=== PATIENT | male | born 1960 | race African-American/Black ===

== ENCOUNTER 2018-08-24 18:31 | Inpatient (IN) | payer OTHER ==
[~2018-08-24] VITALS: Ht 182.9 cm; Wt 114.1 kg
[2018-08-24] MEDS ORDERED: IV NORMAL SALINE 1000ML BAG 1,000 ML IV ONE ×4 (18:45→21:00)
[2018-08-24 18:58] LABS: BASO % 1 % (0-3); EOS # 0.1 x10^3/uL (0.0-0.7); EOS % 1 % (0-3); HEMOGLOBIN 13.6 g/dL (13.0-17.5); LYMPH # 0.6 x10^3/uL (1.0-4.8); LYMPH % 6 % (24-48); MEAN CORPUSCULAR HEMOGLOBIN 26 pg (25-35); MEAN CORPUSCULAR HGB CONC 32 g/dL (31-37); MEAN CORPUSCULAR VOLUME 83 fL (79-100); MONO # 0.6 x10^3/uL (0.0-1.1); MONO % 6 % (0-9); NEUT # 8.6 x10^3uL (1.8-7.7); NEUT % 87 % (31-73); PLATELET COUNT 265 x10^3/uL (140-400); RED BLOOD COUNT 5.16 x10^6/uL (4.30-5.70); RED CELL DISTRIBUTION WIDTH 16.3 % (11.5-14.5); WHITE BLOOD COUNT 9.9 x10^3/uL (4.0-11.0)
[2018-08-24] MEDS ORDERED: LABETALOL 20 MG/4 ML DISP.SYRIN. IVP ONE ×2 (19:15→21:15)
[2018-08-24 19:21] LABS: ALBUMIN 3.9 g/dL (3.4-5.0); ALBUMIN/GLOBULIN RATIO 0.7 (1.0-1.7); CALCIUM 10.4 mg/dL (8.5-10.1); CREATININE 2.4 mg/dL (0.7-1.3); GFR 34.1; MAGNESIUM 2.2 mg/dL (1.8-2.4); POTASSIUM 3.8 mmol/L (3.5-5.1); TOTAL BILIRUBIN 0.6 mg/dL (0.2-1.0); TOTAL PROTEIN 9.5 g/dL (6.4-8.2)
--- NOTE | 2018-08-24 19:32 | RAD ---
PROCEDURE: PORTABLE CHEST 1V CLINICAL INDICATION: Dizziness, HIGH BLOOD SUGAR COMPARISON: None FINDINGS: Median sternotomy. No pneumothorax identified. Cardiac and mediastinal contours unremarkable. No pulmonary consolidation or acute airspace disease. No acute osseous abnormalities identified. Multiple old healed right rib fractures. IMPRESSION: No pulmonary consolidation or acute airspace disease. Electronically signed by: Ephraim Brock DO (08/24/2018 7:30 PM) [facility]
[2018-08-24 19:54] LABS: % BANDS 2 % (0-9); % EOS 1 % (0-5); % LYMPHS 6 % (24-48); % METAS 1 % (0-0); % MONOS 3 % (0-10); % SEGS 87 % (35-66); PLT ESTIMATE ADEQUATE (ADEQUATE)
[2018-08-24 19:58] LABS: BILIRUBIN,URINE NEGATIVE (NEG); CLARITY,URINE CLEAR; COLOR,URINE YELLOW; NITRITE,URINE NEGATIVE (NEG); PROTEIN,URINE NEGATIVE (NEG-TRACE); UROBILINOGEN,URINE 0.2 mg/dL (0.2 mg/dL)
[2018-08-24] MEDS ORDERED: INSULIN REGULAR 100 UNIT/ML 3ML VIAL. IV ONE (20:00)
[2018-08-24] MEDS ORDERED: INSULIN REGULAR VIAL 150 UNIT in 0.9 % SODIUM CHLORIDE 150ML 150 ML IV PRN (20:00)
[2018-08-24] MEDS ORDERED: POTASSIUM CHLORIDE 10MEQ 100 ML IV PRN ×3 (20:00)
[2018-08-24 20:05] LABS: BARBITURATES NEG (NEG); BENZODIAZEPINES NEG (NEG); CANNABINOIDS NEG (NEG); COCAINE NEG (NEG); METHADONE NEG (NEG); OPIATES NEG (NEG); PHENCYCLIDINE NEG (NEG)
[2018-08-24 20:06] LABS: BACTERIA,URINE 0 /HPF (0-FEW); RBC,URINE RARE /HPF (0-2); WBC,URINE 0 /HPF (0-4)
[2018-08-24 20:07] LABS: AMPHETAMINE/METHAMPHETAMINE NEG (NEG)
[2018-08-24] MEDS ORDERED: INSULIN,REGULAR 150 UNIT DRIP 150 ML IV ONE (20:15)
--- NOTE | 2018-08-24 20:24 | PHYS DOC ---
Past Medical History Past Medical History: Depression, GERD, High Cholesterol, Hypertension Additional Past Medical Histor: schizoeffective Past Surgical History: Coronary Bypass Surgery Alcohol Use: None Drug Use: None Adult General Chief Complaint Chief Complaint: HYPERGLYCEMIA HPI HPI Patient is a 58 year old male with history of hypertension, diabetes, depression, open heart surgery 10 years ago, who presents to the ED today complaining of hyperglycemia. Patient states he took his blood glucose at 1600 this evening and it was high. Patient states his blood glucose usually runs in the low 100s. Patient is complaining of dizziness with blurry vision since last week. Denies any chest pain or shortness of breath. He states he took Damien-Aid prior to coming to the ED. PCP Dr. Dawkins Review of Systems Review of Systems Constitutional: Denies fever or chills [] Eyes: Denies change in visual acuity, redness, or eye pain [] HENT: Denies nasal congestion or sore throat [] Respiratory: Denies cough or shortness of breath [] Cardiovascular: No additional information not addressed in HPI [] GI: Denies abdominal pain, nausea, vomiting, bloody stools or diarrhea [] : Denies dysuria or hematuria [] Musculoskeletal: Denies back pain or joint pain [] Integument: Denies rash or skin lesions [] Neurologic: Denies headache, focal weakness or sensory changes [] Endocrine: Reports hyperglycemia All other systems were reviewed and found to be within normal limits, except as documented in this note. Current Medications Current Medications Current Medications Medications (Trade) Dose Ordered Sig/Mathew Start Time Stop Time Status Last Admin Dose Admin Insulin Human Regular 150 ml @ 10.88 mls/ hr 1X ONCE 08/24/18 20:15 08/25/18 10:01 08/24/18 20:26 10.88 MLS/HR Insulin Human Regular (HumuLIN R VIAL) 20 unit 1X ONCE 08/24/18 20:00 08/24/18 20:01 DC 08/24/18 19:59 20 UNIT Insulin Human Regular 150 unit/ Sodium Chloride 151.5 ml @ 0 mls/hr CONT PRN PRN 08/24/18 20:00 Labetalol HCl (Normodyne Iv Push) 10 mg PRN Q4HRS PRN 08/24/18 21:15 Morphine Sulfate (Morphine Sulfate) 2 mg PRN Q2HR PRN 08/24/18 20:45 08/25/18 20:44 Ondansetron HCl (Zofran) 4 mg PRN Q8HRS PRN 08/24/18 20:45 08/25/18 20:44 Potassium Chloride/Water 100 ml @ 100 mls/hr PRN Q1HR PRN 08/24/18 20:00 Sodium Chloride 1,000 ml @ 125 mls/hr 1X ONCE 08/24/18 21:00 08/25/18 04:59 Allergies Allergies Allergies Coded Allergies Type Severity Reaction Last Updated Verified No Known Drug Allergies 08/24/18 No Physical Exam Physical Exam Constitutional: Well developed, well nourished, no acute distress, non-toxic appearance. [] HENT: Normocephalic, atraumatic, bilateral external ears normal, oropharynx moist, no oral exudates, nose normal. [] Eyes: PERRLA, EOMI, conjunctiva normal, no discharge. [] Neck: Normal range of motion, no tenderness, supple, no stridor. [] Cardiovascular: Old healed surgical incision midline chest. Heart rate regular rhythm, no murmur [] Lungs & Thorax: Bilateral breath sounds clear to auscultation [] Abdomen: Bowel sounds normal, soft, no tenderness, no masses, no pulsatile masses. [] Skin: Warm, dry, no erythema, no rash. [] Back: No tenderness, no CVA tenderness. [] Extremities: No tenderness, no cyanosis, no clubbing, ROM intact, no edema. [] Neurologic: Alert and oriented X 3, normal motor function, normal sensory function, no focal deficits noted. [] Psychologic: Affect normal, judgement normal, mood normal. [] Current Patient Data Vital Signs Vital Signs Date Time Temp Pulse Resp B/P (MAP) Pulse Ox O2 Delivery O2 Flow Rate FiO2 08/24/18 20:07 88 17 215/139 (164) 97 Room Air 08/24/18 18:40 98.9 98.9 Lab Values Laboratory Tests Test 08/24/18 18:35 08/24/18 18:38 08/24/18 19:50 Sodium Level 121 mmol/L (136-145) L Potassium Level 3.8 mmol/L (3.5-5.1) Chloride Level 82 mmol/L (98-107) L Carbon Dioxide Level 25 mmol/L (21-32) Anion Gap 14 (6-14) Blood Urea Nitrogen 16 mg/dL (8-26) Creatinine 2.4 mg/dL (0.7-1.3) H Estimated GFR (Cockcroft-Gault) 34.1 BUN/Creatinine Ratio 7 (6-20) Glucose Level 1205 mg/dL (70-99) *H Calcium Level 10.4 mg/dL (8.5-10.1) H Magnesium Level 2.2 mg/dL (1.8-2.4) Total Bilirubin 0.6 mg/dL (0.2-1.0) Aspartate Amino Transferase (AST) 11 U/L (15-37) L Alanine Aminotransferase (ALT) 22 U/L (16-63) Alkaline Phosphatase 192 U/L (46-116) H Creatine Kinase 108 U/L (39-308) Creatine Kinase MB (Mass) 1.4 ng/mL (0.0-3.6) Creatine Kinase MB Relative Index 1.3 % (0-4) Troponin I Quantitative < 0.017 ng/mL (0.000-0.055) IR-Rbk-V-Type Natriuretic Peptide 1732 pg/mL (0-124) H Total Protein 9.5 g/dL (6.4-8.2) H Albumin 3.9 g/dL (3.4-5.0) Albumin/Globulin Ratio 0.7 (1.0-1.7) L Lipase 401 U/L (73-393) H White Blood Count 9.9 x10^3/uL (4.0-11.0) Red Blood Count 5.16 x10^6/uL (4.30-5.70) Hemoglobin 13.6 g/dL (13.0-17.5) Hematocrit 43.0 % (39.0-53.0) Mean Corpuscular Volume 83 fL (79-100) Mean Corpuscular Hemoglobin 26 pg (25-35) Mean Corpuscular Hemoglobin Concent 32 g/dL (31-37) Red Cell Distribution Width 16.3 % (11.5-14.5) H Platelet Count 265 x10^3/uL (140-400) Neutrophils (%) (Auto) 87 % (31-73) H Lymphocytes (%) (Auto) 6 % (24-48) L Monocytes (%) (Auto) 6 % (0-9) Eosinophils (%) (Auto) 1 % (0-3) Basophils (%) (Auto) 1 % (0-3) Neutrophils # (Auto) 8.6 x10^3uL (1.8-7.7) H Lymphocytes # (Auto) 0.6 x10^3/uL (1.0-4.8) L Monocytes # (Auto) 0.6 x10^3/uL (0.0-1.1) Eosinophils # (Auto) 0.1 x10^3/uL (0.0-0.7) Basophils # (Auto) 0.0 x10^3/uL (0.0-0.2) Segmented Neutrophils % 87 % (35-66) H Band Neutrophils % 2 % (0-9) Lymphocytes % 6 % (24-48) L Monocytes % 3 % (0-10) Eosinophils % 1 % (0-5) Metamyelocytes % 1 % (0-0) H Platelet Estimate Adequate (ADEQUATE) Urine Collection Type Unknown Urine Color Yellow Urine Clarity Clear Urine pH 6.0 Urine Specific Jackson >=1.030 Urine Protein Negative mg/dL (NEG-TRACE) Urine Glucose (UA) >=1000 mg/dL (NEG) Urine Ketones (Stick) Negative mg/dL (NEG) Urine Blood Negative (NEG) Urine Nitrite Negative (NEG) Urine Bilirubin Negative (NEG) Urine Urobilinogen Dipstick 0.2 mg/dL (0.2 mg/dL) Urine Leukocyte Esterase Negative (NEG) Urine RBC Rare /HPF (0-2) Urine WBC 0 /HPF (0-4) Urine Bacteria 0 /HPF (0-FEW) Urine Opiates Screen Neg (NEG) Urine Methadone Screen Neg (NEG) Urine Barbiturates Neg (NEG) Urine Phencyclidine Screen Neg (NEG) Urine Amphetamine/Methamphetamine Neg (NEG) Urine Benzodiazepines Screen Neg (NEG) Urine Cocaine Screen Neg (NEG) Urine Cannabinoids Screen Neg (NEG) Urine Ethyl Alcohol Neg (NEG) Laboratory Tests 08/24/18 18:38 Laboratory Tests 08/24/18 18:35 EKG EKG [] Radiology/Procedures Radiology/Procedures []PROCEDURE: PORTABLE CHEST 1V PROCEDURE: PORTABLE CHEST 1V CLINICAL INDICATION: Dizziness, HIGH BLOOD SUGAR COMPARISON: None FINDINGS: Median sternotomy. No pneumothorax identified. Cardiac and mediastinal contours unremarkable. No pulmonary consolidation or acute airspace disease. No acute osseous abnormalities identified. Multiple old healed right rib fractures. IMPRESSION: No pulmonary consolidation or acute airspace disease. Electronically signed by: Ephraim Brock DO (08/24/2018 7:30 PM) [facility] DICTATED and SIGNED BY: EPHRAIM BROCK DO DATE: 08/24/181928 Course & Med Decision Making Course & Med Decision Making Pertinent Labs and Imaging studies reviewed. (See chart for details) This is a 58-year-old male patient with history of diabetes type 2 presenting to the ED today complaining of hyperglycemia. Blood glucose was high at home. CBC with no acute findings, CMP with glucose of 1205, normal anion gap, sodium 121, creatinine 2.1, BUN 16. Magnesium 2.2. Urine negative for ketones. Patient was given 3 L of IV fluids in the ED, given 20 units of regular insulin , started on insulin drip. Lipase was 401, patient denies any history of alcohol abuse, denies abdominal pain, CT abdomen was ordered. CT of the abdomen and pelvic is negative for any acute findings, GI consult was placed for am. Patient blood pressure was also running high, on arrival to the ED he was around 220s/120s. Patient was given labetalol Spoke with who accepted patient for admission Dragon Disclaimer Dragon Disclaimer This electronic medical record was generated, in whole or in part, using a voice recognition dictation system. Departure Departure Impression: Primary Impression: Type 2 diabetes mellitus with hyperosmolar nonketotic hyperglycemia Additional Impressions: Acute renal failure Hyponatremia Pancreatitis, acute Hypertension Disposition: ADMITTED INPATIENT Condition: STABLE Referrals: Miguelina DAWKINS MD (PCP) Problem Qualifiers Additional Impressions: Acute renal failure Acute renal failure type: unspecified Qualified Codes: N17.9 - Acute kidney failure, unspecified Pancreatitis, acute Pancreatitis type: unspecified pancreatitis type Acute pancreatitis complication: unspecified Qualified Codes: K85.90 - Acute pancreatitis without necrosis or infection, unspecified Hypertension Hypertension type: unspecified Qualified Codes: I10 - Essential (primary) hypertension TRACEY ROMERO APRN Aug 24, 2018 20:24
[2018-08-24] MEDS ORDERED: MORPHINE SULFATE 4 MG/ML VIAL. IV PRN (20:45)
[2018-08-24] MEDS ORDERED: ONDANSETRON PF 4 MG/2 ML VIAL. IV PRN (20:45)
--- NOTE | 2018-08-24 21:02 | RAD ---
PQRS Compliance statement: One or more of the following individualized dose reduction techniques were utilized for this examination: 1. Automated exposure control. 2. Adjustment of the mA and/or kV according to patient size. 3. Use of iterative reconstruction technique. Indication:abd pain, acute pancreatitis, no contrast per order, no priors TECHNIQUE: CT abdomen and pelvis without IV contrast with multiplanar reformats. COMPARISON: None FINDINGS: Limited evaluation of solid abdominal and pelvic organs due to lack of IV contrast. Heart is normal in size. No pericardial or pleural effusion. Subsegmental atelectasis in the lung bases. Nodular contour of the liver surface. Noncontrast appearance of the spleen, pancreas, adrenals and left kidney within normal limits. No nephrolithiasis or hydronephrosis. 2.9 x 5 cm high attenuating lesion is seen in the inferior pole of the right kidney. No radiopaque gallstones. No pancreatic or peripancreatic inflammatory changes. No enlarged retroperitoneal or pelvic adenopathy. Mildly enlarged carleen hepatis lymph nodes are seen, the largest measuring 2.3 x 1.3 cm, nonspecific but most likely reactive. No bowel obstruction. Normal appendix. The prostate and seminal vesicles show no large mass. Urinary bladder within normal limits. No pneumoperitoneum. No suspicious bony lesion. Mild loss of superior endplate of T10 and T11 vertebral bodies. IMPRESSION: 1. No pancreatic or peripancreatic inflammatory changes or pseudocyst. 2. Right lower pole renal lesion likely minimally complicated cyst. Nonemergent ultrasound of the right kidney recommended. 3. Carleen hepatis lymph nodes, nonspecific likely reactive. 4. Very mild loss of anterior heights at T10 and T11 vertebral bodies likely compression deformities, age indeterminate. 5. Nodular contour of the liver. This could be secondary to early changes of cirrhosis. Electronically signed by: Ephraim Brock DO (08/24/2018 8:58 PM) [facility]
[2018-08-24] MEDS ORDERED: LABETALOL 20 MG/4 ML DISP.SYRIN. IVP PRN (21:15)
--- NOTE | 2018-08-24 22:57 | EKG ---
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
[2018-08-24 23:15] VITALS: BP 163/93
[2018-08-24] MEDS ORDERED: DEXTROSE 50% 25 GM / 50ML DISP.SYRIN. IV PRN (23:45)
[2018-08-24] MEDS ORDERED: POTASSIUM CHLORIDE 20 MEQ TABLET.ER. PO ONE (23:45)
[2018-08-24] MEDS ORDERED: IV NORMAL SALINE 1000ML BAG 1,000 ML IV SCH (23:45)
[2018-08-25] VITALS (17 sets, daily range): BP systolic 87–167; BP diastolic 46–101
[2018-08-25] MEDS ORDERED: PANT20TA2 PO (01:19)
[2018-08-25] MEDS ORDERED: TRAM50TA PO (01:21)
[2018-08-25] MEDS ORDERED: MIRT30TA3 PO (01:22)
[2018-08-25] MEDS ORDERED: CARV25TA2 PO (01:23)
[2018-08-25] MEDS ORDERED: AMLO5TAB4 PO (01:25)
[2018-08-25] MEDS ORDERED: HYDR12.58 PO (01:26)
[2018-08-25] MEDS ORDERED: SERT100T PO (01:27)
[2018-08-25] MEDS ORDERED: LIPITOR80 MG PO (01:28)
[2018-08-25] MEDS ORDERED: LOSA100T2 PO (01:29)
[2018-08-25] MEDS ORDERED: GABA-585 PO (01:30)
[2018-08-25] MEDS ORDERED: QUET400T4 PO (01:31)
[2018-08-25] MEDS ORDERED: NPH,100V SQ (01:33)
[2018-08-25] MEDS ORDERED: INSU100V5 IJ ×2 (01:35→01:36)
[2018-08-25] MEDS ORDERED: FLUT9.9S NS (01:36)
[2018-08-25] MEDS ORDERED: ACETAMINOPHEN 500 MG TABLET PO PRN (02:45)
[2018-08-25 04:55] LABS: BASO # 0.1 x10^3/uL (0.0-0.2); BASO % 0 % (0-3); EOS # 0.3 x10^3/uL (0.0-0.7); EOS % 3 % (0-3); LYMPH # 1.4 x10^3/uL (1.0-4.8); LYMPH % 11 % (24-48); MEAN CORPUSCULAR HEMOGLOBIN 26 pg (25-35); MEAN CORPUSCULAR HGB CONC 33 g/dL (31-37); MEAN CORPUSCULAR VOLUME 80 fL (79-100); MONO # 0.8 x10^3/uL (0.0-1.1); MONO % 7 % (0-9); NEUT # 9.8 x10^3uL (1.8-7.7); NEUT % 79 % (31-73); PLATELET COUNT 241 x10^3/uL (140-400); RED BLOOD COUNT 5.03 x10^6/uL (4.30-5.70); RED CELL DISTRIBUTION WIDTH 15.8 % (11.5-14.5); WHITE BLOOD COUNT 12.4 x10^3/uL (4.0-11.0)
[2018-08-25 06:19] LABS: CALCIUM 9.5 mg/dL (8.5-10.1); CREATININE 1.7 mg/dL (0.7-1.3); GFR 50.7; POTASSIUM 3.9 mmol/L (3.5-5.1)
[2018-08-25 06:20] LABS: PHOSPHORUS 4.1 mg/dL (2.6-4.7)
[2018-08-25] MEDS: INSULIN LISPRO 300 UNITS/3 ML INSULN.PEN. SQ SCH ×3 (08:11→17:10)
[2018-08-25] MEDS ORDERED: traMADol 50 MG TABLET PO PRN (08:30)
--- NOTE | 2018-08-25 08:36 | PDOC ---
PROGRESS NOTES Subjective Subjective Patient without complaint. Reports FSBG has been running high for months, did not take extra insulin. Denies abdominal pain at present. Objective Objective Vital Signs Date Time Temp Pulse Resp B/P (MAP) Pulse Ox O2 Delivery O2 Flow Rate FiO2 08/25/18 07:58 89 16 148/97 (114) 96 Room Air 08/25/18 04:00 98.6 98.6 Intake and Output 08/25/18 07:00 Intake Total 4014 ml Output Total 250 ml Balance 3764 ml Intake Oral 360 ml IV Total 3654 ml Output Urine Total 250 ml Physical Exam Abdomen: Normal bowel sounds, Soft, No tenderness Heart: Regular rate Extremities: No edema General: Alert, Oriented X3, No acute distress Lungs: Other (BS mildly decreased throughout but CTA) Neuro: Other (tardive dyskinesia of mouth) Assessment Assessment Problems Medical Problems: (1) Acute renal failure Status: Acute (2) Hypertension Status: Acute (3) Hyponatremia Status: Acute (4) Pancreatitis, acute Status: Acute (5) Type 2 diabetes mellitus with hyperosmolar nonketotic hyperglycemia Status: Acute Plan Plan of Care 1. Uncontrolled DM2 - glucose over 1000 at admission, improved quickly with insulin gtt. Last A1C in office was 11.8. Will increase insulins and adjust as indicated. Patient had been well controlled on NPH and regular in the past, will try to continue him on these insulins if possible. 2. HTN - has been controlled, continue home medications. 3. schizoaffective disorder - has been stable, continue home medications. 4. hyponatremia and acute renal failure - improved overnight with IVF. Creatinine close to baseline now. Hold HCTZ and follow lab. 5. elevated lipase - level just over normal range on admission, CT abdomen without acute abnormalities. Patient reports history of heavy ETOH use but does not drink anymore. Abdominal exam benign. Recheck lab in AM. Comment Review of Relevant I have reviewed the following items jose (where applicable) has been applied. Labs Laboratory Tests Test 08/24/18 18:35 08/24/18 18:38 08/24/18 19:50 08/24/18 21:22 Sodium Level 121 mmol/L (136-145) Potassium Level 3.8 mmol/L (3.5-5.1) Chloride Level 82 mmol/L (98-107) Carbon Dioxide Level 25 mmol/L (21-32) Anion Gap 14 (6-14) Blood Urea Nitrogen 16 mg/dL (8-26) Creatinine 2.4 mg/dL (0.7-1.3) Estimated GFR (Cockcroft-Gault) 34.1 BUN/Creatinine Ratio 7 (6-20) Glucose Level 1205 mg/dL (70-99) Calcium Level 10.4 mg/dL (8.5-10.1) Magnesium Level 2.2 mg/dL (1.8-2.4) Total Bilirubin 0.6 mg/dL (0.2-1.0) Aspartate Amino Transf (AST/SGOT) 11 U/L (15-37) Alanine Aminotransferase (ALT/SGPT) 22 U/L (16-63) Alkaline Phosphatase 192 U/L (46-116) Creatine Kinase 108 U/L (39-308) Creatine Kinase MB (Mass) 1.4 ng/mL (0.0-3.6) Creatine Kinase MB Relative Index 1.3 % (0-4) Troponin I Quantitative < 0.017 ng/mL (0.000-0.055) GC-Cgd-G-Type Natriuretic Peptide 1732 pg/mL (0-124) Total Protein 9.5 g/dL (6.4-8.2) Albumin 3.9 g/dL (3.4-5.0) Albumin/Globulin Ratio 0.7 (1.0-1.7) Lipase 401 U/L (73-393) White Blood Count 9.9 x10^3/uL (4.0-11.0) Red Blood Count 5.16 x10^6/uL (4.30-5.70) Hemoglobin 13.6 g/dL (13.0-17.5) Hematocrit 43.0 % (39.0-53.0) Mean Corpuscular Volume 83 fL (79-100) Mean Corpuscular Hemoglobin 26 pg (25-35) Mean Corpuscular Hemoglobin Concent 32 g/dL (31-37) Red Cell Distribution Width 16.3 % (11.5-14.5) Platelet Count 265 x10^3/uL (140-400) Neutrophils (%) (Auto) 87 % (31-73) Lymphocytes (%) (Auto) 6 % (24-48) Monocytes (%) (Auto) 6 % (0-9) Eosinophils (%) (Auto) 1 % (0-3) Basophils (%) (Auto) 1 % (0-3) Neutrophils # (Auto) 8.6 x10^3uL (1.8-7.7) Lymphocytes # (Auto) 0.6 x10^3/uL (1.0-4.8) Monocytes # (Auto) 0.6 x10^3/uL (0.0-1.1) Eosinophils # (Auto) 0.1 x10^3/uL (0.0-0.7) Basophils # (Auto) 0.0 x10^3/uL (0.0-0.2) Segmented Neutrophils % 87 % (35-66) Band Neutrophils % 2 % (0-9) Lymphocytes % 6 % (24-48) Monocytes % 3 % (0-10) Eosinophils % 1 % (0-5) Metamyelocytes % 1 % (0-0) Platelet Estimate Adequate (ADEQUATE) Urine Collection Type Unknown Urine Color Yellow Urine Clarity Clear Urine pH 6.0 Urine Specific [place] >=1.030 Urine Protein Negative mg/dL (NEG-TRACE) Urine Glucose (UA) >=1000 mg/dL (NEG) Urine Ketones (Stick) Negative mg/dL (NEG) Urine Blood Negative (NEG) Urine Nitrite Negative (NEG) Urine Bilirubin Negative (NEG) Urine Urobilinogen Dipstick 0.2 mg/dL (0.2 mg/dL) Urine Leukocyte Esterase Negative (NEG) Urine RBC Rare /HPF (0-2) Urine WBC 0 /HPF (0-4) Urine Bacteria 0 /HPF (0-FEW) Urine Opiates Screen Neg (NEG) Urine Methadone Screen Neg (NEG) Urine Barbiturates Neg (NEG) Urine Phencyclidine Screen Neg (NEG) Urine Amphetamine/Methamphetamine Neg (NEG) Urine Benzodiazepines Screen Neg (NEG) Urine Cocaine Screen Neg (NEG) Urine Cannabinoids Screen Neg (NEG) Urine Ethyl Alcohol Neg (NEG) Glucose (Fingerstick) 371 mg/dL (70-99) Test 08/24/18 22:29 08/24/18 23:14 08/25/18 03:44 08/25/18 04:45 Glucose (Fingerstick) 157 mg/dL (70-99) 105 mg/dL (70-99) 216 mg/dL (70-99) White Blood Count 12.4 x10^3/uL (4.0-11.0) Red Blood Count 5.03 x10^6/uL (4.30-5.70) Hemoglobin 13.0 g/dL (13.0-17.5) Hematocrit 40.0 % (39.0-53.0) Mean Corpuscular Volume 80 fL (79-100) Mean Corpuscular Hemoglobin 26 pg (25-35) Mean Corpuscular Hemoglobin Concent 33 g/dL (31-37) Red Cell Distribution Width 15.8 % (11.5-14.5) Platelet Count 241 x10^3/uL (140-400) Neutrophils (%) (Auto) 79 % (31-73) Lymphocytes (%) (Auto) 11 % (24-48) Monocytes (%) (Auto) 7 % (0-9) Eosinophils (%) (Auto) 3 % (0-3) Basophils (%) (Auto) 0 % (0-3) Neutrophils # (Auto) 9.8 x10^3uL (1.8-7.7) Lymphocytes # (Auto) 1.4 x10^3/uL (1.0-4.8) Monocytes # (Auto) 0.8 x10^3/uL (0.0-1.1) Eosinophils # (Auto) 0.3 x10^3/uL (0.0-0.7) Basophils # (Auto) 0.1 x10^3/uL (0.0-0.2) Sodium Level 137 mmol/L (136-145) Potassium Level 3.9 mmol/L (3.5-5.1) Chloride Level 100 mmol/L (98-107) Carbon Dioxide Level 26 mmol/L (21-32) Anion Gap 11 (6-14) Blood Urea Nitrogen 12 mg/dL (8-26) Creatinine 1.7 mg/dL (0.7-1.3) Estimated GFR (Cockcroft-Gault) 50.7 Glucose Level 247 mg/dL (70-99) Calcium Level 9.5 mg/dL (8.5-10.1) Phosphorus Level 4.1 mg/dL (2.6-4.7) Test 08/25/18 08:07 Glucose (Fingerstick) 309 mg/dL (70-99) Laboratory Tests Test 08/24/18 18:35 08/24/18 18:38 08/24/18 19:50 08/24/18 21:22 Sodium Level 121 mmol/L (136-145) Potassium Level 3.8 mmol/L (3.5-5.1) Chloride Level 82 mmol/L (98-107) Carbon Dioxide Level 25 mmol/L (21-32) Anion Gap 14 (6-14) Blood Urea Nitrogen 16 mg/dL (8-26) Creatinine 2.4 mg/dL (0.7-1.3) Estimated GFR (Cockcroft-Gault) 34.1 BUN/Creatinine Ratio 7 (6-20) Glucose Level 1205 mg/dL (70-99) Calcium Level 10.4 mg/dL (8.5-10.1) Magnesium Level 2.2 mg/dL (1.8-2.4) Total Bilirubin 0.6 mg/dL (0.2-1.0) Aspartate Amino Transf (AST/SGOT) 11 U/L (15-37) Alanine Aminotransferase (ALT/SGPT) 22 U/L (16-63) Alkaline Phosphatase 192 U/L (46-116) Creatine Kinase 108 U/L (39-308) Creatine Kinase MB (Mass) 1.4 ng/mL (0.0-3.6) Creatine Kinase MB Relative Index 1.3 % (0-4) Troponin I Quantitative < 0.017 ng/mL (0.000-0.055) EA-Ypf-T-Type Natriuretic Peptide 1732 pg/mL (0-124) Total Protein 9.5 g/dL (6.4-8.2) Albumin 3.9 g/dL (3.4-5.0) Albumin/Globulin Ratio 0.7 (1.0-1.7) Lipase 401 U/L (73-393) White Blood Count 9.9 x10^3/uL (4.0-11.0) Red Blood Count 5.16 x10^6/uL (4.30-5.70) Hemoglobin 13.6 g/dL (13.0-17.5) Hematocrit 43.0 % (39.0-53.0) Mean Corpuscular Volume 83 fL (79-100) Mean Corpuscular Hemoglobin 26 pg (25-35) Mean Corpuscular Hemoglobin Concent 32 g/dL (31-37) Red Cell Distribution Width 16.3 % (11.5-14.5) Platelet Count 265 x10^3/uL (140-400) Neutrophils (%) (Auto) 87 % (31-73) Lymphocytes (%) (Auto) 6 % (24-48) Monocytes (%) (Auto) 6 % (0-9) Eosinophils (%) (Auto) 1 % (0-3) Basophils (%) (Auto) 1 % (0-3) Neutrophils # (Auto) 8.6 x10^3uL (1.8-7.7) Lymphocytes # (Auto) 0.6 x10^3/uL (1.0-4.8) Monocytes # (Auto) 0.6 x10^3/uL (0.0-1.1) Eosinophils # (Auto) 0.1 x10^3/uL (0.0-0.7) Basophils # (Auto) 0.0 x10^3/uL (0.0-0.2) Segmented Neutrophils % 87 % (35-66) Band Neutrophils % 2 % (0-9) Lymphocytes % 6 % (24-48) Monocytes % 3 % (0-10) Eosinophils % 1 % (0-5) Metamyelocytes % 1 % (0-0) Platelet Estimate Adequate (ADEQUATE) Urine Collection Type Unknown Urine Color Yellow Urine Clarity Clear Urine pH 6.0 Urine Specific [place] >=1.030 Urine Protein Negative mg/dL (NEG-TRACE) Urine Glucose (UA) >=1000 mg/dL (NEG) Urine Ketones (Stick) Negative mg/dL (NEG) Urine Blood Negative (NEG) Urine Nitrite Negative (NEG) Urine Bilirubin Negative (NEG) Urine Urobilinogen Dipstick 0.2 mg/dL (0.2 mg/dL) Urine Leukocyte Esterase Negative (NEG) Urine RBC Rare /HPF (0-2) Urine WBC 0 /HPF (0-4) Urine Bacteria 0 /HPF (0-FEW) Urine Opiates Screen Neg (NEG) Urine Methadone Screen Neg (NEG) Urine Barbiturates Neg (NEG) Urine Phencyclidine Screen Neg (NEG) Urine Amphetamine/Methamphetamine Neg (NEG) Urine Benzodiazepines Screen Neg (NEG) Urine Cocaine Screen Neg (NEG) Urine Cannabinoids Screen Neg (NEG) Urine Ethyl Alcohol Neg (NEG) Glucose (Fingerstick) 371 mg/dL (70-99) Test 08/24/18 22:29 08/24/18 23:14 08/25/18 03:44 08/25/18 04:45 Glucose (Fingerstick) 157 mg/dL (70-99) 105 mg/dL (70-99) 216 mg/dL (70-99) White Blood Count 12.4 x10^3/uL (4.0-11.0) Red Blood Count 5.03 x10^6/uL (4.30-5.70) Hemoglobin 13.0 g/dL (13.0-17.5) Hematocrit 40.0 % (39.0-53.0) Mean Corpuscular Volume 80 fL (79-100) Mean Corpuscular Hemoglobin 26 pg (25-35) Mean Corpuscular Hemoglobin Concent 33 g/dL (31-37) Red Cell Distribution Width 15.8 % (11.5-14.5) Platelet Count 241 x10^3/uL (140-400) Neutrophils (%) (Auto) 79 % (31-73) Lymphocytes (%) (Auto) 11 % (24-48) Monocytes (%) (Auto) 7 % (0-9) Eosinophils (%) (Auto) 3 % (0-3) Basophils (%) (Auto) 0 % (0-3) Neutrophils # (Auto) 9.8 x10^3uL (1.8-7.7) Lymphocytes # (Auto) 1.4 x10^3/uL (1.0-4.8) Monocytes # (Auto) 0.8 x10^3/uL (0.0-1.1) Eosinophils # (Auto) 0.3 x10^3/uL (0.0-0.7) Basophils # (Auto) 0.1 x10^3/uL (0.0-0.2) Sodium Level 137 mmol/L (136-145) Potassium Level 3.9 mmol/L (3.5-5.1) Chloride Level 100 mmol/L (98-107) Carbon Dioxide Level 26 mmol/L (21-32) Anion Gap 11 (6-14) Blood Urea Nitrogen 12 mg/dL (8-26) Creatinine 1.7 mg/dL (0.7-1.3) Estimated GFR (Cockcroft-Gault) 50.7 Glucose Level 247 mg/dL (70-99) Calcium Level 9.5 mg/dL (8.5-10.1) Phosphorus Level 4.1 mg/dL (2.6-4.7) Test 08/25/18 08:07 Glucose (Fingerstick) 309 mg/dL (70-99) Medications Current Medications Sodium Chloride 1,000 ml @ 1,000 mls/hr 1X ONCE IV Last administered on at 18:45; Start 08/24/18 at 18:45; Stop 08/24/18 at 19:44; Status DC Sodium Chloride 1,000 ml @ 1,000 mls/hr 1X ONCE IV Last administered on at 18:45; Start 08/24/18 at 18:45; Stop 08/24/18 at 19:44; Status DC Labetalol HCl (Normodyne Iv Push) 10 mg 1X ONCE IVP Last administered on at 19:48; Start 08/24/18 at 19:15; Stop 08/24/18 at 19:16; Status DC Insulin Human Regular (HumuLIN R VIAL) 20 unit 1X ONCE IV Last administered on 08/24/18at 19:59; Start 08/24/18 at 20:00; Stop 08/24/18 at 20:01; Status DC Insulin Human Regular 150 unit/ Sodium Chloride 151.5 ml @ 0 mls/hr CONT PRN PRN IV PER PROTOCOL; Start 08/24/18 at 20:00; Stop 08/25/18 at 08:23; Status DC Potassium Chloride/Water 100 ml @ 100 mls/hr PRN Q1HR PRN IV SEE COMMENTS; Start 08/24/18 at 20:00; Stop 08/25/18 at 08:23; Status DC Potassium Chloride/Water 100 ml @ 100 mls/hr PRN Q1HR PRN IV SEE COMMENTS; Start 08/24/18 at 20:00; Stop 08/25/18 at 08:23; Status DC Potassium Chloride/Water 100 ml @ 100 mls/hr PRN Q1HR PRN IV SEE COMMENTS; Start 08/24/18 at 20:00; Stop 08/25/18 at 08:23; Status DC Sodium Chloride 1,000 ml @ 1,000 mls/hr 1X ONCE IV Last administered on at 21:03; Start 08/24/18 at 20:00; Stop 08/24/18 at 20:59; Status DC Insulin Human Regular 150 ml @ 10.88 mls/ hr 1X ONCE IV Last administered on 08/24/18at 20:26; Start 08/24/18 at 20:15; Stop 08/25/18 at 10:01 Ondansetron HCl (Zofran) 4 mg PRN Q8HRS PRN IV NAUSEA/VOMITING; Start 08/24/18 at 20:45; Stop 08/25/18 at 20:44 Morphine Sulfate (Morphine Sulfate) 2 mg PRN Q2HR PRN IV PAIN Last administered on 08/24/18at 22:26; Start 08/24/18 at 20:45; Stop 08/25/18 at 20:44 Sodium Chloride 1,000 ml @ 125 mls/hr 1X ONCE IV Last administered on at 22:19; Start 08/24/18 at 21:00; Stop 08/25/18 at 04:59; Status DC Labetalol HCl (Normodyne Iv Push) 10 mg 1X ONCE IVP Last administered on at 21:23; Start 08/24/18 at 21:15; Stop 08/24/18 at 21:16; Status DC Labetalol HCl (Normodyne Iv Push) 10 mg PRN Q4HRS PRN IVP ELEVATED BP, SEE COMMENTS; Start 08/24/18 at 21:15 Potassium Chloride (Klor-Con) 20 meq 1X ONCE PO Last administered on at 00:06; Start 08/24/18 at 23:45; Stop 08/24/18 at 23:46; Status DC Insulin Human Lispro (HumaLOG) 0-5 UNITS TIDWMEALS SQ Last administered on 08/25at 08:11; Start 08/25/18 at 08:00 Dextrose (Dextrose 50%-Water Syringe) 12.5 gm PRN Q15MIN PRN IV SEE COMMENTS; Start 08/24/18 at 23:45 Sodium Chloride 1,000 ml @ 100 mls/hr Q10H IV Last administered on 08/25/18at 00:06; Start 08/24/18 at 23:45 Acetaminophen (Tylenol) 1,000 mg PRN Q6HRS PRN PO PAIN Last administered on at 02:52; Start 08/25/18 at 02:45 Amlodipine Besylate (Norvasc) 5 mg DAILY PO ; Start 08/25/18 at 09:00; Status UNV Gabapentin (Neurontin) 100 mg TID PO ; Start 08/25/18 at 09:00; Status UNV Tramadol HCl (Ultram) 50 mg BID PRN PO PAIN; Start 08/25/18 at 08:30; Status UNV Non-Formulary Medication (Atorvastatin Calcium (Lipitor)) 1 tab DAILY PO ; Start 08/25/18 at 09:00; Status UNV Non-Formulary Medication (Carvedilol ) 25 mg BIDWMEALS PO ; Start 08/25/18 at 17 :00; Status UNV Non-Formulary Medication (Fluticasone Propionate (Flonase Allergy Relief)) 1 sprays DAILY NS ; Start 08/25/18 at 09:00; Status UNV Non-Formulary Medication (Losartan Potassium (Cozaar)) 100 mg DAILY PO ; Start 08/25/18 at 09:00; Status UNV Non-Formulary Medication (Mirtazapine ) 1 tab QHS PO ; Start 08/25/18 at 21:00; Status UNV Active Scripts Active Reported Flonase Allergy Relief (Fluticasone Propionate) 9.9 Ml [place].susp 1 Sprays NS DAILY Humulin R (Insulin Regular, Human) 100 Unit/1 Ml Vial 4 Unit IJ DAILY16 Humulin R (Insulin Regular, Human) 100 Unit/1 Ml Vial 8 Unit IJ DAILY08 Humulin N (Nph, Human Insulin Isophane) 100 Unit/1 Ml Vial 10 Unit SQ [id number] Seroquel (Quetiapine Fumarate) 400 Mg Tablet 1 Tab PO QHS Gabapentin (Gabapentin) 100 Mg Capsule 100 Mg PO TID Cozaar (Losartan Potassium) 100 Mg Tablet 100 Mg PO DAILY Lipitor (Atorvastatin Calcium) 80 Mg Tablet 1 Tab PO DAILY Zoloft (Sertraline Hcl) 100 Mg Tablet 150 Mg PO DAILY Hydrochlorothiazide Tablet (Hydrochlorothiazide) 12.5 Mg Tablet 25 Mg PO DAILY Norvasc (Amlodipine Besylate) 5 Mg Tablet 1 Tab PO DAILY Carvedilol 25 Mg Tablet 25 Mg PO BIDWMEALS Mirtazapine 30 Mg Tablet 1 Tab PO QHS Tramadol Hcl 50 Mg Tablet 50 Mg PO BID PRN 30 Days Protonix (Pantoprazole Sodium) 20 Mg Tablet. 1 Tab PO DAILY 30 Days Vitals/I & O Vital Sign - Last 24 Hours 08/24/18 08/24/18 08/24/18 08/24/18 18:37 18:40 19:07 19:37 Temp 98.9 98.9 Pulse 101 100 95 92 Resp 18 19 18 17 B/P (MAP) 191/104 (133) 191/104 (133) 201/123 (149) 205/127 (153) Pulse Ox 98 97 95 98 O2 Delivery Room Air Room Air Room Air Room Air 08/24/18 08/24/18 08/24/18 08/24/18 19:48 20:07 21:07 21:23 Pulse 97 88 86 68 Resp 17 18 B/P (MAP) 205/127 215/139 (164) 197/115 (142) 180/109 Pulse Ox 97 97 O2 Delivery Room Air Room Air 08/24/18 08/24/18 08/24/18 08/24/18 22:00 22:26 22:30 23:00 Pulse 91 92 77 Resp 18 16 18 18 B/P (MAP) 184/116 (138) 179/101 (127) 140/84 (102) Pulse Ox 97 97 98 97 O2 Delivery Room Air Room Air Room Air Room Air 08/24/18 08/24/18 08/25/18 08/25/18 23:10 23:15 00:00 00:30 Temp 98.4 98.4 Pulse 94 92 92 Resp 22 21 21 B/P (MAP) 163/93 (116) 140/79 (99) 142/91 (108) Pulse Ox 96 97 95 O2 Delivery Room Air Room Air Room Air Room Air 08/25/18 08/25/18 08/25/18 08/25/18 01:00 01:30 02:00 02:40 Pulse 92 88 90 86 Resp 20 23 18 21 B/P (MAP) 166/96 (119) 167/96 (119) 151/89 (109) 116/64 (81) Pulse Ox 95 95 96 97 O2 Delivery Room Air Room Air Room Air Room Air 08/25/18 08/25/18 08/25/18 08/25/18 03:00 04:00 05:00 06:00 Temp 98.6 98.6 Pulse 96 92 88 88 Resp 24 24 18 10 B/P (MAP) 162/84 (110) 158/98 (118) 164/101 (122) 115/77 (90) Pulse Ox 96 96 95 95 O2 Delivery Room Air Room Air Room Air Room Air 08/25/18 07:58 Pulse 89 Resp 16 B/P (MAP) 148/97 (114) Pulse Ox 96 O2 Delivery Room Air Intake and Output 08/24/18 08/24/18 08/25/18 15:00 23:00 07:00 Intake Total 3000 ml 1014 ml Output Total 250 ml Balance 3000 ml 764 ml MALLIKA MALCOLM MD Aug 25, 2018 08:36
[2018-08-25] MEDS ORDERED: LOSARTAN POTASSIUM 50 MG TABLET. PO SCH (09:00)
[2018-08-25] MEDS ORDERED: amLODIPine BESYLATE 5 MG TABLET PO SCH (09:00)
--- NOTE | 2018-08-25 09:19 | HP ---
ADMIT DATE: 08/24/2018 CHIEF COMPLAINT: Elevated blood sugar. HISTORY OF PRESENT ILLNESS: The patient is a 58-year-old male with insulin-dependent diabetes who presented to the Emergency Room with the above complaint. The patient stated that his blood sugar was significantly elevated at home when he checked it on the evening of admission. He had been taking his usual insulins, but had not tried increasing his doses. He felt some dizziness and blurred vision when his blood sugar was elevated, so he came to the Emergency Department. Evaluation there showed him to have a serum glucose of over 1200. Treatment was started and he was admitted for further care. PAST MEDICAL HISTORY: Diabetes mellitus type 2, insulin-dependent, hypertension, hyperlipidemia, schizoaffective disorder, erectile dysfunction. Throat cancer 20 years ago, treated with chemotherapy and radiation. ALLERGIES: The patient has no known drug allergies. HOME MEDICATIONS: Amlodipine 5 mg daily, atorvastatin 80 mg daily, carvedilol 25 mg b.i.d., Flonase daily, gabapentin 100 mg t.i.d., hydrochlorothiazide 25 mg daily, regular insulin 4 units with supper and 8 units with breakfast, NPH insulin 10 units b.i.d., losartan 100 mg daily, mirtazapine 30 mg at bedtime, pantoprazole 20 mg daily, Seroquel 400 mg at bedtime, sertraline 150 mg daily, tramadol 50 mg b.i.d. p.r.n. FAMILY HISTORY: Noncontributory. SOCIAL HISTORY: The patient is single. He is not employed. He has a long smoking history, but quit smoking cigarettes last month. He reports that he used to drink alcohol to excess, but has quit drinking altogether. REVIEW OF SYSTEMS: The patient denies fever or chills. He denies chest pain or palpitations. He denies recent cough or shortness of breath. He has had some intermittent abdominal pain and some diarrhea, but this appears to have resolved. He states that he has been taking his insulins daily. His mood has been pretty good with his usual medication from [facility]. PHYSICAL EXAMINATION: GENERAL: The patient is alert and oriented x 3, resting comfortably in bed in no acute distress. HEENT: PERRL, EOMI, sclerae clear. Oropharynx: Mucous membranes moist. The patient has tardive dyskinesia of his mouth. NECK: Supple, without lymphadenopathy. CHEST: Breath sounds mildly decreased throughout, but otherwise clear to auscultation. No cough during exam. CARDIOVASCULAR: Regular rhythm without murmur. ABDOMEN: Soft, nontender, normoactive bowel sounds are present. EXTREMITIES: Without edema. ASSESSMENT AND PLAN: 1. Uncontrolled diabetes mellitus type 2. The patient's glucose improved quickly with an insulin drip. This has been discontinued and we will resume his usual insulins at a higher dose and adjust this dose as indicated. 2. Hypertension. Continue home medication. 3. Schizoaffective disorder, this appears stable. Continue his usual medications. 4. Hyponatremia and acute renal failure. The patient does have a degree of chronic kidney disease at his baseline. Admission labs showed a creatinine of 2.4 and sodium of 121. This has improved well overnight with IV fluids. Sodium is now normal at 137, creatinine improved at 1.7, which is close to his baseline. We will discontinue the IV fluids and encourage p.o. fluids. We will hold the hydrochlorothiazide at this time. 5. Elevated lipase. The patient's lipase was 401 at admission with the normal range going up to 393. A CT of the abdomen and pelvis showed no acute findings around the pancreas and the patient's abdominal exam is benign. We will allow an ADA diet today and check his lab again in the morning. MALLIKA MALCOLM MD DR: VANE/candace JOB#: [id number] / [id number] SWATI
[2018-08-25] MEDS: PANTOPRAZOLE 40 MG TABLET.DR. PO SCH (09:28)
[2018-08-25] MEDS: GABAPENTIN 100 MG CAPSULE. PO SCH ×3 (09:29→20:31)
[2018-08-25] MEDS: FLUTICASONE 50MCG/NASAL SPRAY 16GM BOTTLE. NS SCH (09:30)
[2018-08-25] MEDS: SERTRALINE 50 MG TABLET. PO SCH (09:33)
[2018-08-25] MEDS: CARVEDILOL 12.5 MG TABLET. PO SCH ×2 (09:33→17:08)
[2018-08-25] MEDS: INSULIN NPH/REG INSULIN 70/30 300 UNITS/3 ML INSULN.PEN. SQ SCH ×2 (09:34→17:11)
--- NOTE | 2018-08-25 09:43 | NUR ---
SS following for discharge planning. Pt is from home and currently on room air. No discharge needs noted at this time. SS will continue to follow for pending discharge needs.
--- NOTE | 2018-08-25 17:48 | NUR ---
Computers were down today from approximately 11:30am until 2:30pm. No medications were scanned during that time.
[2018-08-25] MEDS: QUEtiapine 300 MG TAB.ER.24H. PO SCH (20:30)
[2018-08-25] MEDS: QUEtiapine 50 MG TAB.ER.24H. PO SCH (20:31)
[2018-08-25] MEDS: ATORVASTATIN CALCIUM 40 MG TABLET. PO SCH (20:31)
[2018-08-25] MEDS: MIRTAZAPINE 15 MG TABLET PO SCH (20:31)
[2018-08-25 23:27] LABS: HEMATOCRIT 36.8 % (39.0-53.0); HEMOGLOBIN 12.1 g/dL (13.0-17.5); RED BLOOD COUNT 4.59 x10^6/uL (4.30-5.70); RED CELL DISTRIBUTION WIDTH 16.2 % (11.5-14.5); WHITE BLOOD COUNT 10.4 x10^3/uL (4.0-11.0)
[2018-08-25] MEDS: IV NORMAL SALINE 1000ML BAG 1,000 ML IV SCH (23:29)
[2018-08-25] MEDS ORDERED: IV NORMAL SALINE 250ML 250 ML IV ONE (23:30)
[2018-08-25 23:33] LABS: CALCIUM 8.6 mg/dL (8.5-10.1); CREATININE 2.3 mg/dL (0.7-1.3); GFR 35.8; POTASSIUM 3.9 mmol/L (3.5-5.1)
[2018-08-26] VITALS (7 sets, daily range): BP systolic 85–126; BP diastolic 54–73
[2018-08-26 05:03] LABS: ALBUMIN 2.9 g/dL (3.4-5.0); ALBUMIN/GLOBULIN RATIO 0.7 (1.0-1.7); CALCIUM 8.4 mg/dL (8.5-10.1); CREATININE 2.5 mg/dL (0.7-1.3); GFR 32.5; POTASSIUM 4.2 mmol/L (3.5-5.1); TOTAL BILIRUBIN 0.4 mg/dL (0.2-1.0); TOTAL PROTEIN 6.8 g/dL (6.4-8.2)
[2018-08-26] MEDS: INSULIN LISPRO 300 UNITS/3 ML INSULN.PEN. SQ SCH ×3 (08:00→18:00)
[2018-08-26] MEDS: GABAPENTIN 100 MG CAPSULE. PO SCH ×3 (08:59→20:56)
[2018-08-26] MEDS: SERTRALINE 50 MG TABLET. PO SCH (08:59)
[2018-08-26] MEDS: PANTOPRAZOLE 40 MG TABLET.DR. PO SCH (08:59)
--- NOTE | 2018-08-26 08:59 | PDOC ---
PROGRESS NOTES Subjective Subjective Patient without complaint. Good appetite. Denies pain. Objective Objective Vital Signs Date Time Temp Pulse Resp B/P (MAP) Pulse Ox O2 Delivery O2 Flow Rate FiO2 08/26/18 03:00 98.2 71 18 96/55 (69) 97 Room Air 98.2 Intake and Output 08/26/18 07:00 Intake Total 725 ml Output Total 250 ml Balance 475 ml Intake Oral 725 ml Output Urine Total 250 ml Physical Exam Abdomen: Normal bowel sounds, Soft, No tenderness Heart: Regular rate Extremities: No edema General: Alert, Oriented X3, No acute distress Lungs: Clear to auscultation Assessment Assessment Problems Medical Problems: (1) Acute renal failure Status: Acute (2) Hypertension Status: Acute (3) Hyponatremia Status: Acute (4) Pancreatitis, acute Status: Acute (5) Type 2 diabetes mellitus with hyperosmolar nonketotic hyperglycemia Status: Acute Plan Plan of Care 1. Uncontrolled DM2 - FSBG improving, increase insulins and follow. 2. Acute renal insufficiency - patient had little UO yesterday so IVF were resumed. Creatinine elevated today, continue IVF. Patient encouraged increase po fluids. 3. HTN - patient's BP low yesterday after receiving his home medications. Hold these today and follow. 4. schizoaffective disorder - stable, continue his usual medication. 5. mildly elevated lipase - resolved, now WNL. Patient without any symptoms of pancreatitis. Comment Review of Relevant I have reviewed the following items jose (where applicable) has been applied. Labs Laboratory Tests Test 08/24/18 18:35 08/24/18 18:38 08/24/18 19:50 08/24/18 21:22 Sodium Level 121 mmol/L (136-145) Potassium Level 3.8 mmol/L (3.5-5.1) Chloride Level 82 mmol/L (98-107) Carbon Dioxide Level 25 mmol/L (21-32) Anion Gap 14 (6-14) Blood Urea Nitrogen 16 mg/dL (8-26) Creatinine 2.4 mg/dL (0.7-1.3) Estimated GFR (Cockcroft-Gault) 34.1 BUN/Creatinine Ratio 7 (6-20) Glucose Level 1205 mg/dL (70-99) Calcium Level 10.4 mg/dL (8.5-10.1) Magnesium Level 2.2 mg/dL (1.8-2.4) Total Bilirubin 0.6 mg/dL (0.2-1.0) Aspartate Amino Transf (AST/SGOT) 11 U/L (15-37) Alanine Aminotransferase (ALT/SGPT) 22 U/L (16-63) Alkaline Phosphatase 192 U/L (46-116) Creatine Kinase 108 U/L (39-308) Creatine Kinase MB (Mass) 1.4 ng/mL (0.0-3.6) Creatine Kinase MB Relative Index 1.3 % (0-4) Troponin I Quantitative < 0.017 ng/mL (0.000-0.055) PN-Xxa-[id number]-Type Natriuretic Peptide 1732 pg/mL (0-124) Total Protein 9.5 g/dL (6.4-8.2) Albumin 3.9 g/dL (3.4-5.0) Albumin/Globulin Ratio 0.7 (1.0-1.7) Lipase 401 U/L (73-393) White Blood Count 9.9 x10^3/uL (4.0-11.0) Red Blood Count 5.16 x10^6/uL (4.30-5.70) Hemoglobin 13.6 g/dL (13.0-17.5) Hematocrit 43.0 % (39.0-53.0) Mean Corpuscular Volume 83 fL (79-100) Mean Corpuscular Hemoglobin 26 pg (25-35) Mean Corpuscular Hemoglobin Concent 32 g/dL (31-37) Red Cell Distribution Width 16.3 % (11.5-14.5) Platelet Count 265 x10^3/uL (140-400) Neutrophils (%) (Auto) 87 % (31-73) Lymphocytes (%) (Auto) 6 % (24-48) Monocytes (%) (Auto) 6 % (0-9) Eosinophils (%) (Auto) 1 % (0-3) Basophils (%) (Auto) 1 % (0-3) Neutrophils # (Auto) 8.6 x10^3uL (1.8-7.7) Lymphocytes # (Auto) 0.6 x10^3/uL (1.0-4.8) Monocytes # (Auto) 0.6 x10^3/uL (0.0-1.1) Eosinophils # (Auto) 0.1 x10^3/uL (0.0-0.7) Basophils # (Auto) 0.0 x10^3/uL (0.0-0.2) Segmented Neutrophils % 87 % (35-66) Band Neutrophils % 2 % (0-9) Lymphocytes % 6 % (24-48) Monocytes % 3 % (0-10) Eosinophils % 1 % (0-5) Metamyelocytes % 1 % (0-0) Platelet Estimate Adequate (ADEQUATE) Urine Collection Type Unknown Urine Color Yellow Urine Clarity Clear Urine pH 6.0 Urine Specific Avery >=1.030 Urine Protein Negative mg/dL (NEG-TRACE) Urine Glucose (UA) >=1000 mg/dL (NEG) Urine Ketones (Stick) Negative mg/dL (NEG) Urine Blood Negative (NEG) Urine Nitrite Negative (NEG) Urine Bilirubin Negative (NEG) Urine Urobilinogen Dipstick 0.2 mg/dL (0.2 mg/dL) Urine Leukocyte Esterase Negative (NEG) Urine RBC Rare /HPF (0-2) Urine WBC 0 /HPF (0-4) Urine Bacteria 0 /HPF (0-FEW) Urine Opiates Screen Neg (NEG) Urine Methadone Screen Neg (NEG) Urine Barbiturates Neg (NEG) Urine Phencyclidine Screen Neg (NEG) Urine Amphetamine/Methamphetamine Neg (NEG) Urine Benzodiazepines Screen Neg (NEG) Urine Cocaine Screen Neg (NEG) Urine Cannabinoids Screen Neg (NEG) Urine Ethyl Alcohol Neg (NEG) Glucose (Fingerstick) 371 mg/dL (70-99) Test 08/24/18 22:29 08/24/18 23:14 08/24/18 23:41 08/25/18 03:44 Glucose (Fingerstick) 157 mg/dL (70-99) 105 mg/dL (70-99) 216 mg/dL (70-99) Nasal Screen MRSA (PCR) Negative (Negative) Test 08/25/18 04:45 08/25/18 08:07 08/25/18 11:19 08/25/18 16:14 White Blood Count 12.4 x10^3/uL (4.0-11.0) Red Blood Count 5.03 x10^6/uL (4.30-5.70) Hemoglobin 13.0 g/dL (13.0-17.5) Hematocrit 40.0 % (39.0-53.0) Mean Corpuscular Volume 80 fL (79-100) Mean Corpuscular Hemoglobin 26 pg (25-35) Mean Corpuscular Hemoglobin Concent 33 g/dL (31-37) Red Cell Distribution Width 15.8 % (11.5-14.5) Platelet Count 241 x10^3/uL (140-400) Neutrophils (%) (Auto) 79 % (31-73) Lymphocytes (%) (Auto) 11 % (24-48) Monocytes (%) (Auto) 7 % (0-9) Eosinophils (%) (Auto) 3 % (0-3) Basophils (%) (Auto) 0 % (0-3) Neutrophils # (Auto) 9.8 x10^3uL (1.8-7.7) Lymphocytes # (Auto) 1.4 x10^3/uL (1.0-4.8) Monocytes # (Auto) 0.8 x10^3/uL (0.0-1.1) Eosinophils # (Auto) 0.3 x10^3/uL (0.0-0.7) Basophils # (Auto) 0.1 x10^3/uL (0.0-0.2) Sodium Level 137 mmol/L (136-145) Potassium Level 3.9 mmol/L (3.5-5.1) Chloride Level 100 mmol/L (98-107) Carbon Dioxide Level 26 mmol/L (21-32) Anion Gap 11 (6-14) Blood Urea Nitrogen 12 mg/dL (8-26) Creatinine 1.7 mg/dL (0.7-1.3) Estimated GFR (Cockcroft-Gault) 50.7 Glucose Level 247 mg/dL (70-99) Calcium Level 9.5 mg/dL (8.5-10.1) Phosphorus Level 4.1 mg/dL (2.6-4.7) Glucose (Fingerstick) 309 mg/dL (70-99) 285 mg/dL (70-99) 232 mg/dL (70-99) Test 08/25/18 20:27 08/25/18 22:27 08/25/18 22:32 08/25/18 23:00 Glucose (Fingerstick) 345 mg/dL (70-99) 247 mg/dL (70-99) 235 mg/dL (70-99) White Blood Count 10.4 x10^3/uL (4.0-11.0) Red Blood Count 4.59 x10^6/uL (4.30-5.70) Hemoglobin 12.1 g/dL (13.0-17.5) Hematocrit 36.8 % (39.0-53.0) Mean Corpuscular Volume 80 fL (79-100) Mean Corpuscular Hemoglobin 27 pg (25-35) Mean Corpuscular Hemoglobin Concent 33 g/dL (31-37) Red Cell Distribution Width 16.2 % (11.5-14.5) Platelet Count 230 x10^3/uL (140-400) Sodium Level 140 mmol/L (136-145) Potassium Level 3.9 mmol/L (3.5-5.1) Chloride Level 102 mmol/L (98-107) Carbon Dioxide Level 29 mmol/L (21-32) Anion Gap 9 (6-14) Blood Urea Nitrogen 18 mg/dL (8-26) Creatinine 2.3 mg/dL (0.7-1.3) Estimated GFR (Cockcroft-Gault) 35.8 Glucose Level 246 mg/dL (70-99) Calcium Level 8.6 mg/dL (8.5-10.1) Test 08/26/18 04:15 08/26/18 07:38 Sodium Level 138 mmol/L (136-145) Potassium Level 4.2 mmol/L (3.5-5.1) Chloride Level 103 mmol/L (98-107) Carbon Dioxide Level 26 mmol/L (21-32) Anion Gap 9 (6-14) Blood Urea Nitrogen 19 mg/dL (8-26) Creatinine 2.5 mg/dL (0.7-1.3) Estimated GFR (Cockcroft-Gault) 32.5 BUN/Creatinine Ratio 8 (6-20) Glucose Level 250 mg/dL (70-99) Calcium Level 8.4 mg/dL (8.5-10.1) Total Bilirubin 0.4 mg/dL (0.2-1.0) Aspartate Amino Transf (AST/SGOT) 14 U/L (15-37) Alanine Aminotransferase (ALT/SGPT) 18 U/L (16-63) Alkaline Phosphatase 119 U/L (46-116) Total Protein 6.8 g/dL (6.4-8.2) Albumin 2.9 g/dL (3.4-5.0) Albumin/Globulin Ratio 0.7 (1.0-1.7) Lipase 248 U/L (73-393) Glucose (Fingerstick) 251 mg/dL (70-99) Laboratory Tests Test 08/25/18 11:19 08/25/18 16:14 08/25/18 20:27 08/25/18 22:27 Glucose (Fingerstick) 285 mg/dL (70-99) 232 mg/dL (70-99) 345 mg/dL (70-99) 247 mg/dL (70-99) Test 08/25/18 22:32 08/25/18 23:00 08/26/18 04:15 08/26/18 07:38 Glucose (Fingerstick) 235 mg/dL (70-99) 251 mg/dL (70-99) White Blood Count 10.4 x10^3/uL (4.0-11.0) Red Blood Count 4.59 x10^6/uL (4.30-5.70) Hemoglobin 12.1 g/dL (13.0-17.5) Hematocrit 36.8 % (39.0-53.0) Mean Corpuscular Volume 80 fL (79-100) Mean Corpuscular Hemoglobin 27 pg (25-35) Mean Corpuscular Hemoglobin Concent 33 g/dL (31-37) Red Cell Distribution Width 16.2 % (11.5-14.5) Platelet Count 230 x10^3/uL (140-400) Sodium Level 140 mmol/L (136-145) 138 mmol/L (136-145) Potassium Level 3.9 mmol/L (3.5-5.1) 4.2 mmol/L (3.5-5.1) Chloride Level 102 mmol/L (98-107) 103 mmol/L (98-107) Carbon Dioxide Level 29 mmol/L (21-32) 26 mmol/L (21-32) Anion Gap 9 (6-14) 9 (6-14) Blood Urea Nitrogen 18 mg/dL (8-26) 19 mg/dL (8-26) Creatinine 2.3 mg/dL (0.7-1.3) 2.5 mg/dL (0.7-1.3) Estimated GFR (Cockcroft-Gault) 35.8 32.5 Glucose Level 246 mg/dL (70-99) 250 mg/dL (70-99) Calcium Level 8.6 mg/dL (8.5-10.1) 8.4 mg/dL (8.5-10.1) BUN/Creatinine Ratio 8 (6-20) Total Bilirubin 0.4 mg/dL (0.2-1.0) Aspartate Amino Transf (AST/SGOT) 14 U/L (15-37) Alanine Aminotransferase (ALT/SGPT) 18 U/L (16-63) Alkaline Phosphatase 119 U/L (46-116) Total Protein 6.8 g/dL (6.4-8.2) Albumin 2.9 g/dL (3.4-5.0) Albumin/Globulin Ratio 0.7 (1.0-1.7) Lipase 248 U/L (73-393) Medications Current Medications Sodium Chloride 1,000 ml @ 1,000 mls/hr 1X ONCE IV Last administered on at 18:45; Start 08/24/18 at 18:45; Stop 08/24/18 at 19:44; Status DC Sodium Chloride 1,000 ml @ 1,000 mls/hr 1X ONCE IV Last administered on at 18:45; Start 08/24/18 at 18:45; Stop 08/24/18 at 19:44; Status DC Labetalol HCl (Normodyne Iv Push) 10 mg 1X ONCE IVP Last administered on at 19:48; Start 08/24/18 at 19:15; Stop 08/24/18 at 19:16; Status DC Insulin Human Regular (HumuLIN R VIAL) 20 unit 1X ONCE IV Last administered on 08/24/18at 19:59; Start 08/24/18 at 20:00; Stop 08/24/18 at 20:01; Status DC Insulin Human Regular 150 unit/ Sodium Chloride 151.5 ml @ 0 mls/hr CONT PRN PRN IV PER PROTOCOL; Start 08/24/18 at 20:00; Stop 08/25/18 at 08:23; Status DC Potassium Chloride/Water 100 ml @ 100 mls/hr PRN Q1HR PRN IV SEE COMMENTS; Start 08/24/18 at 20:00; Stop 08/25/18 at 08:23; Status DC Potassium Chloride/Water 100 ml @ 100 mls/hr PRN Q1HR PRN IV SEE COMMENTS; Start 08/24/18 at 20:00; Stop 08/25/18 at 08:23; Status DC Potassium Chloride/Water 100 ml @ 100 mls/hr PRN Q1HR PRN IV SEE COMMENTS; Start 08/24/18 at 20:00; Stop 08/25/18 at 08:23; Status DC Sodium Chloride 1,000 ml @ 1,000 mls/hr 1X ONCE IV Last administered on at 21:03; Start 08/24/18 at 20:00; Stop 08/24/18 at 20:59; Status DC Insulin Human Regular 150 ml @ 10.88 mls/ hr 1X ONCE IV Last administered on 08/24/18at 20:26; Start 08/24/18 at 20:15; Stop 08/25/18 at 10:01; Status DC Ondansetron HCl (Zofran) 4 mg PRN Q8HRS PRN IV NAUSEA/VOMITING; Start 08/24/18 at 20:45; Stop 08/25/18 at 20:44; Status DC Morphine Sulfate (Morphine Sulfate) 2 mg PRN Q2HR PRN IV PAIN Last administered on 08/24/18at 22:26; Start 08/24/18 at 20:45; Stop 08/25/18 at 20:44 ; Status DC Sodium Chloride 1,000 ml @ 125 mls/hr 1X ONCE IV Last administered on at 22:19; Start 08/24/18 at 21:00; Stop 08/25/18 at 04:59; Status DC Labetalol HCl (Normodyne Iv Push) 10 mg 1X ONCE IVP Last administered on at 21:23; Start 08/24/18 at 21:15; Stop 08/24/18 at 21:16; Status DC Labetalol HCl (Normodyne Iv Push) 10 mg PRN Q4HRS PRN IVP ELEVATED BP, SEE COMMENTS; Start 08/24/18 at 21:15 Potassium Chloride (Klor-Con) 20 meq 1X ONCE PO Last administered on 00:06; Start 08/24/18 at 23:45; Stop 08/24/18 at 23:46; Status DC Insulin Human Lispro (HumaLOG) 0-5 UNITS TIDWMEALS SQ Last administered on 08/25at 17:10; Start 08/25/18 at 08:00 Dextrose (Dextrose 50%-Water Syringe) 12.5 gm PRN Q15MIN PRN IV SEE COMMENTS; Start 08/24/18 at 23:45 Sodium Chloride 1,000 ml @ 100 mls/hr Q10H IV Last administered on 08/25/18 00:06; Start 08/24/18 at 23:45; Stop 08/25/18 at 08:44; Status DC Acetaminophen (Tylenol) 1,000 mg PRN Q6HRS PRN PO PAIN Last administered on 02:52; Start 08/25/18 at 02:45 Amlodipine Besylate (Norvasc) 5 mg DAILY PO Last administered on 08/25/18 09: 28; Start 08/25/18 at 09:00; Stop 08/25/18 at 22:56; Status DC Gabapentin (Neurontin) 100 mg TID PO Last administered on 08/25/18 20:31; Start 08/25/18 at 09:00 Tramadol HCl (Ultram) 50 mg PRN BID PRN PO PAIN; Start 08/25/18 at 08:30 Atorvastatin Calcium (Lipitor) 80 mg QHS PO Last administered on 08/25/18 20: 31; Start 08/25/18 at 21:00 Carvedilol (Coreg) 25 mg BIDWMEALS PO Last administered on 08/25/18 17:08; Start 08/25/18 at 08:30; Stop 08/25/18 at 22:56; Status DC Fluticasone Propionate (Flonase) 2 spray DAILY NS Last administered on 09:30; Start 08/25/18 at 09:00 Losartan Potassium (Cozaar) 100 mg DAILY PO Last administered on 08/25/18 09: 29; Start 08/25/18 at 09:00; Stop 08/25/18 at 22:56; Status DC Mirtazapine (Remeron) 30 mg QHS PO Last administered on 08/25/18 20:31; Start 08/25/18 at 21:00 Pantoprazole Sodium (Protonix) 40 mg DAILYAC PO Last administered on 08/25/18 09:28; Start 08/25/18 at 08:30 Quetiapine Fumarate (SEROquel XR) 300 mg HS PO Last administered on 08/25/18 20:30; Start 08/25/18 at 21:00 Sertraline HCl (Zoloft) 150 mg DAILY PO Last administered on 08/25/18 09:33; Start 08/25/18 at 09:00 Insulin Human Isoph/Insulin Regular (HumuLIN 70/30) 30 units BIDWMEALS SQ Last administered on 08/25/18 17:11; Start 08/25/18 at 08:30 Quetiapine Fumarate (SEROquel XR) 100 mg HS PO Last administered on 08/25/18 20:31; Start 08/25/18 at 21:00 Sodium Chloride 250 ml @ 500 mls/hr 1X ONCE IV Last administered on 23:29; Start 08/25/18 at 23:30; Stop 08/25/18 at 23:59; Status DC Carvedilol (Coreg) 12.5 mg BIDWMEALS PO ; Start 08/26/18 at 08:00 Sodium Chloride 1,000 ml @ 100 mls/hr Q10H IV Last administered on 08/25/18 23:29; Start 08/26/18 at 00:00 Active Scripts Active Reported Flonase Allergy Relief (Fluticasone Propionate) 9.9 Ml Lolo.susp 1 Sprays NS DAILY Humulin R (Insulin Regular, Human) 100 Unit/1 Ml Vial 4 Unit IJ [id number] Humulin R (Insulin Regular, Human) 100 Unit/1 Ml Vial 8 Unit IJ [id number] Humulin N (Nph, Human Insulin Isophane) 100 Unit/1 Ml Vial 10 Unit SQ [id number] Seroquel (Quetiapine Fumarate) 400 Mg Tablet 1 Tab PO QHS Gabapentin (Gabapentin) 100 Mg Capsule 100 Mg PO TID Cozaar (Losartan Potassium) 100 Mg Tablet 100 Mg PO DAILY Lipitor (Atorvastatin Calcium) 80 Mg Tablet 1 Tab PO DAILY Zoloft (Sertraline Hcl) 100 Mg Tablet 150 Mg PO DAILY Hydrochlorothiazide Tablet (Hydrochlorothiazide) 12.5 Mg Tablet 25 Mg PO DAILY Norvasc (Amlodipine Besylate) 5 Mg Tablet 1 Tab PO DAILY Carvedilol 25 Mg Tablet 25 Mg PO BIDWMEALS Mirtazapine 30 Mg Tablet 1 Tab PO QHS Tramadol Hcl 50 Mg Tablet 50 Mg PO BID PRN 30 Days Protonix (Pantoprazole Sodium) 20 Mg Tablet.dr 1 Tab PO DAILY 30 Days Vitals/I & O Vital Sign - Last 24 Hours 08/25/18 08/25/18 08/25/18 08/25/18 09:00 09:28 09:29 09:33 Temp 98.4 98.4 Pulse 93 93 98 94 Resp 18 B/P (MAP) 147/86 (106) 147/86 147/86 147/86 Pulse Ox 96 O2 Delivery Room Air 08/25/18 08/25/18 08/25/18 08/25/18 11:00 14:47 17:08 19:00 Temp 97.8 97.9 98.1 97.8 97.9 98.1 Pulse 85 75 75 77 Resp 18 18 16 B/P (MAP) 114/79 (91) 104/62 (76) 104/62 87/46 (60) Pulse Ox 97 100 92 O2 Delivery Room Air Room Air Room Air 08/25/18 08/26/18 08/26/18 23:00 00:07 03:00 Temp 98.1 98.2 98.1 98.2 Pulse 68 70 71 Resp 17 18 B/P (MAP) 90/60 (70) 85/64 (71) 96/55 (69) Pulse Ox 96 97 O2 Delivery Room Air Room Air Intake and Output 08/25/18 08/25/18 08/26/18 15:00 23:00 07:00 Intake Total 425 ml 300 ml 0 ml Output Total 250 ml Balance 175 ml 300 ml 0 ml MALLIKA MALCOLM MD Aug 26, 2018 08:59
[2018-08-26] MEDS: INSULIN NPH/REG INSULIN 70/30 300 UNITS/3 ML INSULN.PEN. SQ SCH ×2 (09:00→18:01)
[2018-08-26] MEDS: CARVEDILOL 12.5 MG TABLET. PO SCH ×2 (09:00→17:54)
[2018-08-26] MEDS: FLUTICASONE 50MCG/NASAL SPRAY 16GM BOTTLE. NS SCH (09:01)
[2018-08-26] MEDS: IV NORMAL SALINE 1000ML BAG 1,000 ML IV SCH ×2 (09:02→20:56)
--- NOTE | 2018-08-26 13:39 | NUR ---
SW following for discharge planning. Discussed with RN, RN advised no SW needs at this time. SW will continue to follow.
[2018-08-26] MEDS: QUEtiapine 300 MG TAB.ER.24H. PO SCH (20:57)
[2018-08-26] MEDS: MIRTAZAPINE 15 MG TABLET PO SCH (20:57)
[2018-08-26] MEDS: QUEtiapine 50 MG TAB.ER.24H. PO SCH (20:57)
[2018-08-26] MEDS: ATORVASTATIN CALCIUM 40 MG TABLET. PO SCH (20:57)
[2018-08-27 02:55] VITALS: BP 118/68
[2018-08-27] MEDS: IV NORMAL SALINE 1000ML BAG 1,000 ML IV SCH (06:00)
[2018-08-27 07:00] VITALS: BP 109/62
[2018-08-27 07:44] LABS: CREATININE 1.8 mg/dL (0.7-1.3); GFR 47.5; POTASSIUM 3.4 mmol/L (3.5-5.1)
[2018-08-27] MEDS: PANTOPRAZOLE 40 MG TABLET.DR. PO SCH (08:25)
[2018-08-27] MEDS: CARVEDILOL 12.5 MG TABLET. PO SCH (08:26)
[2018-08-27] MEDS: GABAPENTIN 100 MG CAPSULE. PO SCH ×2 (08:26→12:55)
[2018-08-27] MEDS: SERTRALINE 50 MG TABLET. PO SCH (08:26)
[2018-08-27] MEDS: FLUTICASONE 50MCG/NASAL SPRAY 16GM BOTTLE. NS SCH (08:27)
[2018-08-27] MEDS: INSULIN NPH/REG INSULIN 70/30 300 UNITS/3 ML INSULN.PEN. SQ SCH (08:35)
[2018-08-27] MEDS: INSULIN LISPRO 300 UNITS/3 ML INSULN.PEN. SQ SCH ×2 (08:36→12:58)
--- NOTE | 2018-08-27 09:37 | PDOC ---
PROGRESS NOTES Subjective Subjective Patient without complaint, feels ready to go home. Objective Objective Vital Signs Date Time Temp Pulse Resp B/P (MAP) Pulse Ox O2 Delivery O2 Flow Rate FiO2 08/27/18 08:26 65 118/68 08/27/18 07:00 97.6 18 95 Room Air 97.6 Intake and Output 08/27/18 07:00 Intake Total 1370 ml Output Total 250 ml Balance 1120 ml Intake Oral 1370 ml Output Urine Total 250 ml # Voids 3 Physical Exam Abdomen: Normal bowel sounds, Soft, No tenderness Heart: Regular rate Extremities: No edema General: Alert, Oriented X3, No acute distress Lungs: Clear to auscultation Assessment Assessment Problems Medical Problems: (1) Acute renal failure Status: Acute (2) Hypertension Status: Acute (3) Hyponatremia Status: Acute (4) Pancreatitis, acute Status: Acute (5) Type 2 diabetes mellitus with hyperosmolar nonketotic hyperglycemia Status: Acute Plan Plan of Care 1. Uncontrolled DM2 - much better on present 70/30. Home today on current dose. Closer attention to diet strongly advised. 2. HTN - BP well controlled on much less medication, home on decreased Coreg only. Recheck in office. 3. renal insufficiency - improved with IVF overnight. Increased po fluids advised. 4. schizoaffective disorder - stable, continue medication per Psychiatry. 5, mild hypokalemia - replace x1 today. Comment Review of Relevant I have reviewed the following items jose (where applicable) has been applied. Labs Laboratory Tests Test 08/25/18 11:19 08/25/18 16:14 08/25/18 20:27 08/25/18 22:27 Glucose (Fingerstick) 285 mg/dL (70-99) 232 mg/dL (70-99) 345 mg/dL (70-99) 247 mg/dL (70-99) Test 08/25/18 22:32 08/25/18 23:00 08/26/18 04:15 08/26/18 07:38 Glucose (Fingerstick) 235 mg/dL (70-99) 251 mg/dL (70-99) White Blood Count 10.4 x10^3/uL (4.0-11.0) Red Blood Count 4.59 x10^6/uL (4.30-5.70) Hemoglobin 12.1 g/dL (13.0-17.5) Hematocrit 36.8 % (39.0-53.0) Mean Corpuscular Volume 80 fL (79-100) Mean Corpuscular Hemoglobin 27 pg (25-35) Mean Corpuscular Hemoglobin Concent 33 g/dL (31-37) Red Cell Distribution Width 16.2 % (11.5-14.5) Platelet Count 230 x10^3/uL (140-400) Sodium Level 140 mmol/L (136-145) 138 mmol/L (136-145) Potassium Level 3.9 mmol/L (3.5-5.1) 4.2 mmol/L (3.5-5.1) Chloride Level 102 mmol/L (98-107) 103 mmol/L (98-107) Carbon Dioxide Level 29 mmol/L (21-32) 26 mmol/L (21-32) Anion Gap 9 (6-14) 9 (6-14) Blood Urea Nitrogen 18 mg/dL (8-26) 19 mg/dL (8-26) Creatinine 2.3 mg/dL (0.7-1.3) 2.5 mg/dL (0.7-1.3) Estimated GFR (Cockcroft-Gault) 35.8 32.5 Glucose Level 246 mg/dL (70-99) 250 mg/dL (70-99) Calcium Level 8.6 mg/dL (8.5-10.1) 8.4 mg/dL (8.5-10.1) BUN/Creatinine Ratio 8 (6-20) Total Bilirubin 0.4 mg/dL (0.2-1.0) Aspartate Amino Transf (AST/SGOT) 14 U/L (15-37) Alanine Aminotransferase (ALT/SGPT) 18 U/L (16-63) Alkaline Phosphatase 119 U/L (46-116) Total Protein 6.8 g/dL (6.4-8.2) Albumin 2.9 g/dL (3.4-5.0) Albumin/Globulin Ratio 0.7 (1.0-1.7) Lipase 248 U/L (73-393) Test 08/26/18 11:03 08/26/18 11:06 08/26/18 16:54 08/26/18 20:23 Glucose (Fingerstick) 376 mg/dL (70-99) 349 mg/dL (70-99) 162 mg/dL (70-99) 282 mg/dL (70-99) Test 08/27/18 06:28 08/27/18 07:45 Sodium Level 143 mmol/L (136-145) Potassium Level 3.4 mmol/L (3.5-5.1) Chloride Level 108 mmol/L (98-107) Carbon Dioxide Level 27 mmol/L (21-32) Anion Gap 8 (6-14) Blood Urea Nitrogen 17 mg/dL (8-26) Creatinine 1.8 mg/dL (0.7-1.3) Estimated GFR (Cockcroft-Gault) 47.5 Glucose Level 105 mg/dL (70-99) Calcium Level 8.0 mg/dL (8.5-10.1) Glucose (Fingerstick) 162 mg/dL (70-99) Laboratory Tests Test 08/26/18 11:03 08/26/18 11:06 08/26/18 16:54 08/26/18 20:23 Glucose (Fingerstick) 376 mg/dL (70-99) 349 mg/dL (70-99) 162 mg/dL (70-99) 282 mg/dL (70-99) Test 08/27/18 06:28 08/27/18 07:45 Sodium Level 143 mmol/L (136-145) Potassium Level 3.4 mmol/L (3.5-5.1) Chloride Level 108 mmol/L (98-107) Carbon Dioxide Level 27 mmol/L (21-32) Anion Gap 8 (6-14) Blood Urea Nitrogen 17 mg/dL (8-26) Creatinine 1.8 mg/dL (0.7-1.3) Estimated GFR (Cockcroft-Gault) 47.5 Glucose Level 105 mg/dL (70-99) Calcium Level 8.0 mg/dL (8.5-10.1) Glucose (Fingerstick) 162 mg/dL (70-99) Medications Current Medications Sodium Chloride 1,000 ml @ 1,000 mls/hr 1X ONCE IV Last administered on at 18:45; Start 08/24/18 at 18:45; Stop 08/24/18 at 19:44; Status DC Sodium Chloride 1,000 ml @ 1,000 mls/hr 1X ONCE IV Last administered on at 18:45; Start 08/24/18 at 18:45; Stop 08/24/18 at 19:44; Status DC Labetalol HCl (Normodyne Iv Push) 10 mg 1X ONCE IVP Last administered on at 19:48; Start 08/24/18 at 19:15; Stop 08/24/18 at 19:16; Status DC Insulin Human Regular (HumuLIN R VIAL) 20 unit 1X ONCE IV Last administered on 08/24/18at 19:59; Start 08/24/18 at 20:00; Stop 08/24/18 at 20:01; Status DC Insulin Human Regular 150 unit/ Sodium Chloride 151.5 ml @ 0 mls/hr CONT PRN PRN IV PER PROTOCOL; Start 08/24/18 at 20:00; Stop 08/25/18 at 08:23; Status DC Potassium Chloride/Water 100 ml @ 100 mls/hr PRN Q1HR PRN IV SEE COMMENTS; Start 08/24/18 at 20:00; Stop 08/25/18 at 08:23; Status DC Potassium Chloride/Water 100 ml @ 100 mls/hr PRN Q1HR PRN IV SEE COMMENTS; Start 08/24/18 at 20:00; Stop 08/25/18 at 08:23; Status DC Potassium Chloride/Water 100 ml @ 100 mls/hr PRN Q1HR PRN IV SEE COMMENTS; Start 08/24/18 at 20:00; Stop 08/25/18 at 08:23; Status DC Sodium Chloride 1,000 ml @ 1,000 mls/hr 1X ONCE IV Last administered on at 21:03; Start 08/24/18 at 20:00; Stop 08/24/18 at 20:59; Status DC Insulin Human Regular 150 ml @ 10.88 mls/ hr 1X ONCE IV Last administered on 08/24/18at 20:26; Start 08/24/18 at 20:15; Stop 08/25/18 at 10:01; Status DC Ondansetron HCl (Zofran) 4 mg PRN Q8HRS PRN IV NAUSEA/VOMITING; Start 08/24/18 at 20:45; Stop 08/25/18 at 20:44; Status DC Morphine Sulfate (Morphine Sulfate) 2 mg PRN Q2HR PRN IV PAIN Last administered on 08/24/18at 22:26; Start 08/24/18 at 20:45; Stop 08/25/18 at 20:44 ; Status DC Sodium Chloride 1,000 ml @ 125 mls/hr 1X ONCE IV Last administered on at 22:19; Start 08/24/18 at 21:00; Stop 08/25/18 at 04:59; Status DC Labetalol HCl (Normodyne Iv Push) 10 mg 1X ONCE IVP Last administered on at 21:23; Start 08/24/18 at 21:15; Stop 08/24/18 at 21:16; Status DC Labetalol HCl (Normodyne Iv Push) 10 mg PRN Q4HRS PRN IVP ELEVATED BP, SEE COMMENTS; Start 08/24/18 at 21:15 Potassium Chloride (Klor-Con) 20 meq 1X ONCE PO Last administered on at 00:06; Start 08/24/18 at 23:45; Stop 08/24/18 at 23:46; Status DC Insulin Human Lispro (HumaLOG) 0-5 UNITS TIDWMEALS SQ Last administered on at 08:36; Start 08/25/18 at 08:00 Dextrose (Dextrose 50%-Water Syringe) 12.5 gm PRN Q15MIN PRN IV SEE COMMENTS; Start 08/24/18 at 23:45 Sodium Chloride 1,000 ml @ 100 mls/hr Q10H IV Last administered on 08/25/18at 00:06; Start 08/24/18 at 23:45; Stop 08/25/18 at 08:44; Status DC Acetaminophen (Tylenol) 1,000 mg PRN Q6HRS PRN PO HEADACHE, FEVER Last administered on 08/25/18at 02:52; Start 08/25/18 at 02:45 Amlodipine Besylate (Norvasc) 5 mg DAILY PO Last administered on 08/25/18at 09: 28; Start 08/25/18 at 09:00; Stop 08/25/18 at 22:56; Status DC Gabapentin (Neurontin) 100 mg TID PO Last administered on 08/27/18 08:26; Start 08/25/18 at 09:00 Tramadol HCl (Ultram) 50 mg PRN BID PRN PO PAIN; Start 08/25/18 at 08:30 Atorvastatin Calcium (Lipitor) 80 mg QHS PO Last administered on 08/26/18 20: 57; Start 08/25/18 at 21:00 Carvedilol (Coreg) 25 mg BIDWMEALS PO Last administered on 08/25/18 17:08; Start 08/25/18 at 08:30; Stop 08/25/18 at 22:56; Status DC Fluticasone Propionate (Flonase) 2 spray DAILY NS Last administered on 08:27; Start 08/25/18 at 09:00 Losartan Potassium (Cozaar) 100 mg DAILY PO Last administered on 08/25/18 09: 29; Start 08/25/18 at 09:00; Stop 08/25/18 at 22:56; Status DC Mirtazapine (Remeron) 30 mg QHS PO Last administered on 08/26/18 20:57; Start 08/25/18 at 21:00 Pantoprazole Sodium (Protonix) 40 mg DAILYAC PO Last administered on 08/27/18 08:25; Start 08/25/18 at 08:30 Quetiapine Fumarate (SEROquel XR) 300 mg HS PO Last administered on 08/26/18 20:57; Start 08/25/18 at 21:00 Sertraline HCl (Zoloft) 150 mg DAILY PO Last administered on 08/27/18 08:26; Start 08/25/18 at 09:00 Insulin Human Isoph/Insulin Regular (HumuLIN 70/30) 30 units BIDWMEALS SQ Last administered on 08/25/18 17:11; Start 08/25/18 at 08:30; Stop 08/26/18 at 08:54 ; Status DC Quetiapine Fumarate (SEROquel XR) 100 mg HS PO Last administered on 08/26/18 20:57; Start 08/25/18 at 21:00 Sodium Chloride 250 ml @ 500 mls/hr 1X ONCE IV Last administered on at 23:29; Start 08/25/18 at 23:30; Stop 08/25/18 at 23:59; Status DC Carvedilol (Coreg) 12.5 mg BIDWMEALS PO Last administered on 08/27/18at 08:26; Start 08/26/18 at 08:00 Sodium Chloride 1,000 ml @ 100 mls/hr Q10H IV Last administered on 08/27/18at 06 :00; Start 08/26/18 at 00:00 Insulin Human Isoph/Insulin Regular (HumuLIN 70/30) 36 units BIDWMEALS SQ Last administered on 08/27/18at 08:35; Start 08/26/18 at 09:00 Active Scripts Active Reported Flonase Allergy Relief (Fluticasone Propionate) 9.9 Ml [place].susp 1 Sprays NS DAILY Humulin R (Insulin Regular, Human) 100 Unit/1 Ml Vial 4 Unit IJ [id number] Humulin R (Insulin Regular, Human) 100 Unit/1 Ml Vial 8 Unit IJ [id number] Humulin N (Nph, Human Insulin Isophane) 100 Unit/1 Ml Vial 10 Unit SQ [id number] Seroquel (Quetiapine Fumarate) 400 Mg Tablet 1 Tab PO QHS Gabapentin (Gabapentin) 100 Mg Capsule 100 Mg PO TID Cozaar (Losartan Potassium) 100 Mg Tablet 100 Mg PO DAILY Lipitor (Atorvastatin Calcium) 80 Mg Tablet 1 Tab PO DAILY Zoloft (Sertraline Hcl) 100 Mg Tablet 150 Mg PO DAILY Hydrochlorothiazide Tablet (Hydrochlorothiazide) 12.5 Mg Tablet 25 Mg PO DAILY Norvasc (Amlodipine Besylate) 5 Mg Tablet 1 Tab PO DAILY Carvedilol 25 Mg Tablet 25 Mg PO BIDWMEALS Mirtazapine 30 Mg Tablet 1 Tab PO QHS Tramadol Hcl 50 Mg Tablet 50 Mg PO BID PRN 30 Days Protonix (Pantoprazole Sodium) 20 Mg Tablet.dr 1 Tab PO DAILY 30 Days Vitals/I & O Vital Sign - Last 24 Hours 08/26/18 08/26/18 08/26/18 08/26/18 11:00 15:00 17:54 19:00 Temp 96.6 98.4 98.5 96.6 98.4 98.5 Pulse 68 68 68 81 Resp 17 B/P (MAP) 91/54 (66) 126/73 (90) 126/70 115/70 (85) Pulse Ox 96 95 96 O2 Delivery Room Air 08/26/18 08/27/18 08/27/18 08/27/18 22:55 02:55 07:00 08:26 Temp 97.8 97.6 97.6 97.8 97.6 97.6 Pulse 61 65 65 65 Resp 17 18 18 B/P (MAP) 106/61 (76) 118/68 (85) 109/62 (78) 118/68 Pulse Ox 97 95 95 O2 Delivery Room Air Room Air Room Air Intake and Output 08/26/18 08/26/18 08/27/18 15:00 23:00 07:00 Intake Total 480 ml 240 ml 650 ml Output Total 250 ml Balance 230 ml 240 ml 650 ml MALLIKA MALCOLM MD Aug 27, 2018 09:37
[2018-08-27] MEDS ORDERED: CARV12.511 PO (09:41)
[2018-08-27] MEDS ORDERED: HUM100IN3 SQ (09:41)
[2018-08-27] MEDS ORDERED: POTASSIUM CHLORIDE 20 MEQ TABLET.ER. PO ONE (09:45)
[2018-08-27 11:00] VITALS: BP 142/96
--- NOTE | 2018-08-27 11:08 | NUR ---
SW following. Discussed with RN, RN advised no SW needs at this time. SW will continue to follow.
--- NOTE | 2018-08-27 13:48 | DS ---
DATE OF DISCHARGE: 08/27/2018 CHIEF COMPLAINT: Elevated blood sugar. HISTORY OF PRESENT ILLNESS: The patient is a 58-year-old male with insulin-dependent diabetes who presented to the Emergency Room with the above complaint. The patient stated that his blood sugar was significantly elevated at home when he checked it on the evening of admission. He had been taking his usual insulins but had not tried increasing his doses. He felt some dizziness and blurred vision when his blood sugar was elevated so he came to the Emergency Department. Evaluation there showed him to have a serum glucose of over 1200. Treatment was started and he was admitted for further care. HOSPITAL COURSE: The patient was started on an insulin drip and his blood sugars improved promptly with this. The insulin drip was discontinued and he was started on Humulin 70/30. This dose has been adjusted and his blood sugars are now fairly well controlled. He will be discharged home today on this insulin and further adjustments can be done at office visits. He is strongly advised better attention to his diet to avoid hyperglycemia. The patient had hyponatremia and acute renal failure at admission with a sodium of 121 and a creatinine of 2.4. He does have a degree of chronic kidney disease at his baseline. His labs improved quickly with IV fluids. He is also taking p.o. fluids well now. His hydrochlorothiazide was discontinued and will not be resumed at discharge. The patient had very mildly elevated lipase at admission of 401. A CT of the abdomen and pelvis did not show any acute findings around the pancreas and the patient's abdominal exam was benign. The lipase was rechecked the next day and was well within the normal range and the patient has not had any abdominal pain. The patient was on several medications for hypertension. These were held at admission as his blood pressure was mildly low. He is now taking the Coreg at a reduced dose, but is not needing any other medication to control his blood pressure at this time. He has schizoaffective disorder. His usual medications were continued and this appears stable. FINAL DIAGNOSES: 1. Uncontrolled insulin-dependent diabetes. 2. Hypertension. 3. Acute renal insufficiency with chronic kidney disease. 4. Schizoaffective disorder. DISCHARGE MEDICATIONS: Coreg 12.5 mg b.i.d., Humulin 70/30 insulin 36 units with breakfast and dinner, atorvastatin 80 mg daily, gabapentin 100 mg t.i.d., mirtazapine 30 mg at bedtime, Protonix 20 mg daily, Seroquel 400 mg at bedtime, sertraline 150 mg daily, tramadol 50 mg p.r.n., amlodipine, carvedilol 25 mg, hydrochlorothiazide and losartan have been discontinued at this time. FOLLOWUP: With Dr. Cole or Dr. Dawkins within 2 weeks. MALLIKA COLE MD DR: VANE/candace JOB#: [id number] / [id number] [facility]
== END 2018-08-27 13:40 | disposition home or self-care (01) | DRG 682 ==
LOC: ER 18:31 → 1 WEST ICU 19:59 → 5 SOUTH 08-25 10:53
PROVIDERS: ADMIT Family Medicine; ATTEND Family Medicine
DX: N17.9 Acute kidney failure, unspecified (principal); E11.00 Type 2 diabetes mellitus with hyperosmolarity without nonketotic hyperglycemic-hyperosmolar coma (NKHHC); E87.1 Hypo-osmolality and hyponatremia; I12.9 Hypertensive chronic kidney disease with stage 1 through stage 4 chronic kidney disease, or unspecified chronic kidney disease; E11.22 Type 2 diabetes mellitus with diabetic chronic kidney disease; Z79.4 Long term (current) use of insulin; F32.9 Major depressive disorder, single episode, unspecified; R74.8 Abnormal levels of other serum enzymes; F25.9 Schizoaffective disorder, unspecified; N18.9 Chronic kidney disease, unspecified; E87.6 Hypokalemia; E78.00 Pure hypercholesterolemia, unspecified; E78.5 Hyperlipidemia, unspecified; K21.9 Gastro-esophageal reflux disease without esophagitis; Z85.819 Personal history of malignant neoplasm of unspecified site of lip, oral cavity, and pharynx; Z87.891 Personal history of nicotine dependence; Z92.21 Personal history of antineoplastic chemotherapy; Z92.3 Personal history of irradiation; Z95.1 Presence of aortocoronary bypass graft; Z79.899 Other long term (current) drug therapy
CPT/HCPCS: 36415; 71045; 74176; 80048; 80053; 80307; 81001; 82553; 82962; 83690; 83735; 83880; 84100; 84484; 85007; 85025; 85027; 87641; 93005; 96361; 96365; 96366; 96375; 96376; J1815; J2270; J3490; J7030; J7050; 99285-25

== ENCOUNTER → 2019-01-14 | Outpatient (CLI) | payer OTHER ==
[~2019-01-14] MED LIST: AMLO5TAB4 PO; CARV12.511 PO; CARV25TA2 PO; FLUT9.9S NS; GABA-585 PO; HUM100IN3 SQ; HYDR12.58 PO; INSU100V5 IJ; LIPITOR80 MG PO; LOSA100T2 PO; MIRT30TA3 PO; NPH,100V SQ; PANT20TA2 PO; QUET400T4 PO; SERT100T PO; TRAM50TA PO
--- NOTE | 2019-01-14 10:38 | RAD ---
Indication: Chronic low back pain TECHNIQUE: 3 views of the lumbar spine COMPARISON: None FINDINGS: Lumbar spine is in normal anatomic alignment. There are 5 lumbar type vertebral bodies. No compression deformities. Mild intervertebral disc space narrowing at L5-S1 with facet arthropathy. SI joints are within normal limits. Mild bilateral hip joint osteoarthritis. IMPRESSION: Mild lower lumbar spine facet arthropathy with L5-S1 disc disease. Electronically signed by: Ephraim Brock DO (01/14/2019 10:35 AM) [facility]
== END | disposition home or self-care (01) ==
LOC: RAD 09:22
PROVIDERS: ATTEND Surgery
DX: M16.0 Bilateral primary osteoarthritis of hip (principal)
CPT/HCPCS: 72100

== ENCOUNTER → 2019-03-28 | Outpatient (CLI) | payer MEDICAID | END | disposition home or self-care (01) | LOC: PCVCCLINIC 14:00 | PROVIDERS: ATTEND Internal Medicine | DX: I25.10 Atherosclerotic heart disease of native coronary artery without angina pectoris (principal); R06.09 Other forms of dyspnea; E11.9 Type 2 diabetes mellitus without complications; E78.5 Hyperlipidemia, unspecified; I10 Essential (primary) hypertension; F17.200 Nicotine dependence, unspecified, uncomplicated; Z95.1 Presence of aortocoronary bypass graft; Z79.4 Long term (current) use of insulin | CPT/HCPCS: 36415; 80061; 93005; G0463 ==

== ENCOUNTER → 2019-04-11 | Outpatient (CLI) | payer MEDICAID ==
[~2019-04-11] MED LIST changes: +REGADENOSON 0.4 MG/5 ML DISP.SYRIN. IV ONE
--- NOTE | 2019-04-11 13:16 | PCVCIMAG ---
APPROVED REPORT Imaging Protocol: Rest Tc-99m/Stress Tc-99m 1 day Study performed: 04/11/2019 09:43:21 Indication: Dyspnea, CAD Patient Location: Out-Patient Stress Nurse: Susana Jarvis RN DE Tech:Kailyn DowlingARNIE shahMT Ht: 6 ft 0 in Wt: 243 lbs BSA: 2.31 m2 HR: 101 bpm BP: 128/90 mmHg BMI: 32.95 Rhythm: Sinus Tachycardia Medical History Medical History: Current Smoker, CAD Medications: Amlodipine, Carvedilol, Lorsartan, Atorvastatin Allergies: No known drug allergies Cardiac Risk Factors: Age Previous Cardiac Procedures: 201 CABG Pretest Chest Pain Characteristics: No chest pain Exercise History: Physically active Meds Held (24 hrs): pt chose to hold all meds this am. Resting Data Rest SPECT myocardial perfusion imaging was performed in supine position 45 minutes following the intravenous injection of 10.8 mCi of Tc-99m Sestamibi. Time of rest injection: 0900 Administration Route: IV Administration Site: Right AC Pharmacologic Stress Pharmacologic stress test was performed by injecting Regadenoson 0.4 mg IV push over 10-15 seconds immediately followed by the intravenous injection of 32.2 mCi of Tc-99m Sestamibi. Time of stress injection: 1030 Date: 04/11/2019 Administration Route: IV Administration Site: Right AC Gated Stress SPECT was performed 45 minutes after stress injection. The images were gated to evaluate regional wall motion and calculate left ventricular ejection fraction. Stress Test Details Stress Test: Pharmacologic stress testing performed using 0.4 mg of regadenoson per 5 mL given IV over 10 seconds. Reason for pharmacologic stress test: physical limitation. HRMax Heart Rate (APMHR): 163 bpm Resting HR: 101 bpmTarget HR (85% APMHR): 138 bpm Max HR Achieved: 110 bpm % of APMHR: 67 Recovery HR: 111 bpm BP Resting BP: 128/90 mmHg Max BP: 131/698 mmHg Recovery BP: 119/79 mmHg ECG Resting ECG: Sinus Tachycardia Stress ECG: Sinus Tachycardia Arrhythmia: PVC's Recovery ECG: Sinus Tachycardia Clinical Reason for Termination: Completed protocol Stress Symptoms: Abdominal discomfort, Lightheaded Exercise duration: min 55 sec Symptoms resolved with caffeine. Stress ECG Conclusion 1. Adequate response to intravenous Lexiscan 2. Inadequate heart rate for ECG diagnosis Study Data Post stress, the left ventricular ejection was 54%.. SSS: 1 SRS: 3 SDS: 1 TID = 1.27. Perfusion There is a large area of moderately reduced uptake in the entire segment of the infero-apical and anteroapical wall which is seen on the stress images and improves on the resting images but is not statistically significant. This area thickens and moves normally with mild anteroapical hypokinesis and is most consistent with attenuation artifact although small region of ischemia cannot be excluded. Wall Motion Mild antral apical hypokinesis is noted Nuclear Conclusion ECG Findings: non-diagnostic Clinical Findings: negative for ischemia Nuclear Findings: negative for ischemia Exercise Capacity: not assessed Left Ventricular Function: normal 1. Low to intermediate risk study based on mild anteroapical hypokinesis with minimal evidence of inducible ischemia clinical correlation suggested 2. Post exercise left ventricle ejection fraction of 54% with mild anteroapical hypokinesis <Conclusion> 1. Adequate response to intravenous Lexiscan 2. Inadequate heart rate for ECG diagnosis
--- NOTE | 2019-04-11 13:19 | PCVCIMAG ---
APPROVED REPORT Study performed: 04/11/2019 08:23:11 EXAM: Comprehensive 2D, Doppler, and color-flow Echocardiogram Patient Location: Echo lab Status: routine BSA: 2.31 HR: 100 bpmBP: 110/80 mmHg Rhythm: Tachycardia Other Information Study Quality: Adequate Technically limited study due to poor acoustic windows. Risk Factors: Cardiac Risk Factors: HTN Indications Dyspnea CAD CABG 2D Dimensions IVSd: 11.55 (7-11mm) LVDd: 37.18 mm PWd: 10.86 (7-11mm)Ascending Ao: 36.73 (22-36mm) LVDs: 29.78 (25-40mm) Left Atrium: 36.33 (27-40mm) Aortic Root: 33.68 mm LV Single Plane 4CH: 50.46 % LV Single Plane 2CH: 42.70 % Biplane EF: 45.7 % Volumes Left Atrial Volume (Systole) Single Plane 4CH: 49.94 mLSingle Plane 2CH: 47.66 mL LA ESV Index: 22.00 mL/m2 Aortic Valve AoV Peak Sharif.: 1.29 m/s AO Peak Gr.: 6.70 mmHgLVOT Max P.68 mmHg LVOT Max V: 1.08 m/s Mitral Valve E/A Ratio: 0.7 MV Decel. Time: 212.50 ms MV E Max Sharif.: 0.43 m/s MV A Sharif.: 0.61 m/s IVRT: 134.95 ms Pulmonary Valve PV Peak Sharif.: 1.26 m/sPV Peak Gr.: 6.36 mmHg Pulmonary Vein P Vein S: 0.23 m/sP Vein A: 0.27 m/s P Vein D: 0.31 m/sP Vein A Dur.: 114.2 msec P Vein S/D Ratio: 0.74 Tricuspid Valve TR Peak Sharif.: 2.73 m/s TR Peak Gr.: 29.79 mmHg Left Ventricle The left ventricle is normal size. There is normal LV segmental wall motion. Mild concentric left ventricular hypertrophy. Left ventricular systolic function is mildly decreased. LVEF is 45-50%. Grade I - abnormal relaxation pattern. Right Ventricle The right ventricle is normal size. The right ventricular systolic function is normal. Atria The left atrium size is normal. The right atrium size is normal. Aortic Valve The aortic valve is normal in structure. No aortic regurgitation is present. There is no aortic valvular stenosis. Mitral Valve The mitral valve is normal in structure. There is no mitral valve regurgitation noted. No evidence of mitral valve stenosis. Tricuspid Valve The tricuspid valve is normal in structure. Mild tricuspid regurgitation with PAP of 37 mmHg. Pulmonic Valve The pulmonary valve is normal in structure. There is trace pulmonic valvular regurgitation. Great Vessels The aortic root is normal in size. IVC is normal in size and collapses >50% with inspiration. Pericardium There is no pericardial effusion. There is no pleural effusion. <Conclusion> The left ventricle is normal size. LVEF is 45-50%. The aortic valve is normal in structure. The mitral valve is normal in structure. The tricuspid valve is normal in structure. Mild tricuspid regurgitation with PAP of 37 mmHg. There is no pericardial effusion.
== END | disposition home or self-care (01) ==
LOC: PCVCIMAG 09:06
PROVIDERS: ATTEND Internal Medicine
DX: I07.1 Rheumatic tricuspid insufficiency (principal); I25.10 Atherosclerotic heart disease of native coronary artery without angina pectoris; R06.00 Dyspnea, unspecified; Z95.1 Presence of aortocoronary bypass graft
CPT/HCPCS: 78452; 93017; 93306; A9500; J2785

== ENCOUNTER 2019-05-11 06:36 | Outpatient (CLI) | payer OTHER ==
[~2019-05-11] VITALS: Ht 182.9 cm; Wt 107.5 kg
[2019-05-11] VITALS (10 sets, daily range): BP systolic 109–147; BP diastolic 67–85
[~2019-05-11 06:36] MED LIST changes: -REGADENOSON 0.4 MG/5 ML DISP.SYRIN. IV ONE
[2019-05-11] MEDS ORDERED: AMLO5TAB10 PO (07:27)
[2019-05-11] MEDS ORDERED: PANT40TA77 PO (07:27)
[2019-05-11] MEDS ORDERED: HUM100VI SQ (07:27)
[2019-05-11] MEDS ORDERED: QUET300T5 PO (07:27)
[2019-05-11] MEDS ORDERED: LOSA100T14 PO (07:27)
[2019-05-11] MEDS ORDERED: SERT100T PO (07:27)
[2019-05-11] MEDS ORDERED: LIDOCAINE 1% Multi-Dose 20 ML VIAL. ONE (07:39)
[2019-05-11] MEDS ORDERED: IODIXANOL 320 MG/ML 100 ML VIAL. ONE (07:39)
[2019-05-11] MEDS ORDERED: MIDAZOLAM HCL/PF 5 MG/5 ML VIAL. ONE (08:05)
[2019-05-11] MEDS ORDERED: fentaNYL PF VIAL 100 MCG/2 ML VIAL ONE ×2 (08:05→08:15)
[2019-05-11 08:09] LABS: CALCIUM 8.6 mg/dL (8.5-10.1); CREATININE 1.6 mg/dL (0.7-1.3); GFR 54.2; POTASSIUM 3.7 mmol/L (3.5-5.1)
[2019-05-11] MEDS ORDERED: IV NORMAL SALINE 1000ML BAG 1,000 ML IV SCH ×2 (08:45→09:21)
[2019-05-11] MEDS ORDERED: IODIXANOL 320 MG/ML 100 ML VIAL. IART ONE (09:00)
[2019-05-11] MEDS ORDERED: CONTRAST GIVEN. MC PRN (09:00)
[2019-05-11] MEDS ORDERED: MIDAZOLAM HCL/PF 5 MG/5 ML VIAL. IV ONE (09:00)
[2019-05-11] MEDS ORDERED: LIDOCAINE 1% Multi-Dose 20 ML VIAL. INJ ONE (09:00)
[2019-05-11] MEDS ORDERED: ONDANSETRON PF 4 MG/2 ML VIAL. IV PRN (09:30)
[2019-05-11] MEDS ORDERED: NITROGLYCERIN SUBLINGUAL 0.4 MG BOTTLE OF 25. SL PRN (09:30)
[2019-05-11] MEDS ORDERED: 0.9 % SODIUM CHLORIDE 10 ML DISP.SYRIN. IV PRN (09:30)
--- NOTE | 2019-05-11 11:30 | NUR ---
Discharge Note: ROBERT LAU Discharge instructions and discharge home medications reviewed with Significant Other and a copy given. All questions have been answered and understanding verbalized. Patient ate breakfast with no difficulties. The following instructions and handouts were given: Moderate sedation and Groin Site care. Discontinued lines and drains: Left hand, dressing clean dry intact. Patient discharged to home with girlfriend via wheelchair to transportation service van.
--- NOTE | 2019-05-30 12:09 | CARD ---
MR#: [id number] Date of Study: 05/11/2019 Ordering Physician: KAROL GRUBBS, Referring Physician: KAROL GRUBBS, Tech: ARNOLD MENDIETA RTR APPROVED REPORT Technologist: ARNOLD MENDIETA RTR Nurse: Mayda Patterson R.N. Procedure(s) performed: Left heart catheterization, selective left and right coronary angiography, se lective saphenous vein graft angiography, selective left internal mammary artery graft angiography, m easurement of left ventricular end-diastolic pressures, supervision of conscious sedation MODERATE SEDATION TIME: 35 MINUTES FLUORO TIME: 6.9 MIN DOSE: 161 GYCM2 CONTRAST: 133 HISTORY The patient is a 59 year-old male with a history of : coronary artery disease, previous CABG (The CAB G date was ). INDICATION The indication(s) include : positive stress test, Current some anginal symptoms and progressive in na ture. CSHA Clinical Frailty Scale CS Clinical Frailty Scale: Mildly Frail Heart Failure Heart Failure: No CASE TECHNIQUE The patient was brought electively into the cardiac catheterization lab. A timeout was performed conf irming the patient's name, date of , procedure, and site of procedure. All necessary parties wer e wearing the appropriate personal protective equipment and radiation monitoring devices. After expla ining the risks and benefits of the procedure, informed consent was obtained.(See nursing notes for m edications administered). The right groin was sterilely prepped and draped. The right femoral groin w as infiltrated with 1% Lidocaine subcutaneous anesthesia. During this case, Fluoroscopy an standard c ontrast were used for imaging. A 4 Kinyarwanda sheath was inserted into the right femoral artery without d ifficulty. Coronary angiography was performed using coronary diagnostic catheters. The left coronary system was accessed and visualized with a Diagnostic catheter. The right coronary system was accessed and visualized with a Diagnostic catheter. The left ventricle was accessed and visualized with a Maura gnostic catheter. The left internal mammary artery was accessed and visualized with a Diagnostic cath eter. The saphenous vein graft was accessed and visualized with a Diagnostic catheter. Left ventricul ar/Aortic Valve gradient assessed on pullback. Coronary Angiography The patient's coronary anatomy is right dominant. The left main coronary artery is a medium size vessel bifurcates into left anterior descending left c ircumflex. There is mild luminal irregularities noted no high-grade obstructive lesion present. The left anterior descending artery is a small size vessel which is totally occluded in its proximal portion. The mid and distal LAD fills via left internal mammary artery graft which is widely patent a t the anastomosis. The LAD proper continues in the anterior interventricular sulcus for the apex is a small-caliber vessel with diffuse irregularities present. The provides collaterals to the distal PDA of the right coronary sinus. The circumflex artery is a small to medium size vessel I gives rise to small first marginal branches have luminal irregularities. The second marginal branch has sequential 99% stenoses and then is occlu ded in its proximal third. Circumflex proper then continues in the AV groove posterior daily where it 's occluded at the origin of the third posterior wall marginal branch. The right coronary artery is a medium size vessel that is totally occluded proximally. The distal cir culation fills via a patent SVG to the posterior descending artery and via left to right collaterals from the LAD. The left internal mammary artery to the left anterior descending artery is patent . The saphenous vei n graft to the left circumflex is patent . The saphenous vein graft to the the right coronary system is patent . Left Ventriculography There was no gradient across the aortic valve upon pullback. Left ventriculography was not performed due to the presence of a 2-D echo Doppler prior to angiography to minimize contrast load Conclusion 1. Coronary disease severe multivessel status post aortocoronary bypass grafting 2. Abnormal hemodynamics with elevated left ventricular end-diastolic pressures Recommendations Cardiac Risk Reduction Program Aggressive Medical Therapy Signed by : Karol Grubbs, Electronically Approved : 05/30/2019 12:08:50
== END 2019-05-11 11:30 | disposition home or self-care (01) ==
LOC: CCL 06:36
PROVIDERS: ATTEND Internal Medicine
DX: R06.00 Dyspnea, unspecified (principal); I25.810 Atherosclerosis of coronary artery bypass graft(s) without angina pectoris; Z95.1 Presence of aortocoronary bypass graft
CPT/HCPCS: 36415; 80048; 93459; 99152; 99153; C1760; C1769; C1892; J1644; J2250; J3010; J7030; Q9967; G0269; C1771

== ENCOUNTER → 2019-06-13 | Outpatient (CLI) | payer OTHER ==
[2019-05-30 11:24] VITALS: BP 116/77
[~2019-06-13] MED LIST changes: +AMLO5TAB10 PO; +HUM100VI SQ; +IOHEXOL 300 MG/ML 100ML VIAL. IV ONE; +LOSA100T14 PO; +PANT40TA77 PO; +QUET300T5 PO
--- NOTE | 2019-06-13 11:00 | RAD ---
CT study of the soft tissues of the neck with contrast INDICATIONS: Neck mass. History of lesion inside mouth in the cheek area on the right side according to the patient Comparison: None available. TECHNIQUE: After IV infusion of 60 cc of Omnipaque 300, helical CT scanning of the soft tissues of the neck from the base of the skull down through the lung apices was performed. PQRS compliance Statement One or more of the following individualized dose reduction techniques were utilized for this study: 1. Automated exposure control 2. Adjustment of the mA and/or kV according to patient size 3. Use of iterative reconstruction technique FINDINGS: The parotid salivary glands are unremarkable. The submandibular salivary glands are atrophic. Thyroid gland is unremarkable. The true and false focal cords and preepiglottic fat space space and epiglottis and aryepiglottic folds are unremarkable. No parapharyngeal or submucosal soft tissue thickening is evident. No obvious oral pharyngeal or hypopharyngeal soft tissue mass is evident. Base of tongue is unremarkable. No enlarged cervical lymphadenopathy is evident. No abnormal enlargement of tonsils or adenoids is evident. No prevertebral soft tissue swelling is evident. No soft tissue abscess is seen. No lung apical mass is evident. No lytic process is seen. IMPRESSION: No significant abnormality is seen. Electronically signed by: Scott English MD (06/13/2019 10:57 AM) [facility]
== END | disposition home or self-care (01) ==
LOC: CT 07:51
PROVIDERS: ATTEND Otolaryngology
DX: R22.1 Localized swelling, mass and lump, neck (principal); R09.82 Postnasal drip; R13.14 Dysphagia, pharyngoesophageal phase; K14.8 Other diseases of tongue; R49.0 Dysphonia; R68.2 Dry mouth, unspecified; I13.0 Hypertensive heart and chronic kidney disease with heart failure and stage 1 through stage 4 chronic kidney disease, or unspecified chronic kidney disease; I50.9 Heart failure, unspecified; N18.3 Chronic kidney disease, stage 3 (moderate); E11.22 Type 2 diabetes mellitus with diabetic chronic kidney disease; Z72.0 Tobacco use; Z79.01 Long term (current) use of anticoagulants; Z95.1 Presence of aortocoronary bypass graft
CPT/HCPCS: 70491; Q9967

== ENCOUNTER → 2019-06-14 | Outpatient (CLI) | payer OTHER ==
[2019-05-30 11:24] VITALS: BP 116/77
[~2019-06-14] MED LIST changes: +BARIUM SULFATE 40% (APPLE) 148 GM PWD. PO ONE; -IOHEXOL 300 MG/ML 100ML VIAL. IV ONE
--- NOTE | 2019-06-14 14:38 | RAD ---
EXAM: Modified barium swallow. HISTORY: Dysphagia. FINDINGS: Barium contrast material was administered orally and multiple consistencies under the direction of speech pathology, and followed in its course during swallowing with video fluoroscopy. A fluoroscopic image and multiple videofluoroscopic clips were obtained. Fluoroscopy time 4.4 minutes. The radiologist was present for the entire imaging procedure. There was laryngeal penetration with thin liquids and occasionally with vallecular residue from other consistencies. Vallecular residue was consistent with thicker consistencies. There was no clear aspiration. IMPRESSION: 1. Laryngeal penetration of thin liquids and vallecular residue. Refer to the full report by speech pathology for more detail. Electronically signed by: Lowell Rankin MD (06/14/2019 2:35 PM) [facility]
== END | disposition home or self-care (01) ==
LOC: RAD 12:28
PROVIDERS: ATTEND Otolaryngology
DX: K14.8 Other diseases of tongue (principal); R13.14 Dysphagia, pharyngoesophageal phase; R09.82 Postnasal drip; R68.2 Dry mouth, unspecified; R22.1 Localized swelling, mass and lump, neck; R49.0 Dysphonia; I13.0 Hypertensive heart and chronic kidney disease with heart failure and stage 1 through stage 4 chronic kidney disease, or unspecified chronic kidney disease; I50.9 Heart failure, unspecified; N18.3 Chronic kidney disease, stage 3 (moderate); E11.22 Type 2 diabetes mellitus with diabetic chronic kidney disease; Z72.0 Tobacco use; Z79.01 Long term (current) use of anticoagulants; Z79.4 Long term (current) use of insulin
CPT/HCPCS: 74230; 92526; 92611

== ENCOUNTER → 2020-01-10 | Outpatient (CLI) | payer OTHER ==
[2019-05-30 11:24] VITALS: BP 116/77
[~2020-01-10] MED LIST changes: +APIX5TAB PO; -BARIUM SULFATE 40% (APPLE) 148 GM PWD. PO ONE
== END | disposition home or self-care (01) ==
LOC: LAB 09:39
PROVIDERS: ATTEND Internal Medicine Gastroenterology
DX: Z01.818 Encounter for other preprocedural examination (principal); Z11.59 Encounter for screening for other viral diseases; Z85.818 Personal history of malignant neoplasm of other sites of lip, oral cavity, and pharynx
CPT/HCPCS: U0003-CS

== ENCOUNTER → 2020-01-13 | Day surgery (SDC) | payer OTHER ==
[~2020-01-13] MED LIST changes: +IV NORMAL SALINE 1000ML BAG 1,000 ML IV ONE; +LIDOCAINE 2% PF 5 ML VIAL. ONE
[2020-01-13 09:25] VITALS: BP 112/71
== END | disposition home or self-care (01) ==
LOC: SURG 07:10
PROVIDERS: ATTEND Internal Medicine Gastroenterology
DX: K22.2 Esophageal obstruction (principal); F17.210 Nicotine dependence, cigarettes, uncomplicated; Z79.899 Other long term (current) drug therapy; Z98.890 Other specified postprocedural states
CPT/HCPCS: 43235; 43450

== ENCOUNTER → 2020-03-27 | Outpatient (CLI) | payer OTHER ==
[2020-01-13 09:25] VITALS: BP 112/71
[~2020-03-27] MED LIST changes: -IV NORMAL SALINE 1000ML BAG 1,000 ML IV ONE; -LIDOCAINE 2% PF 5 ML VIAL. ONE
--- NOTE | 2020-03-27 12:28 | CARD ---
MR#: [id number] Date of Study: 03/27/2020 Ordering Physician: ALEXSANDRA STARKEY, Referring Physician: ALEXSANDRA STARKEY, Tech: APPROVED REPORT PROCEDURE: Implantation of Medtronic Reveal Linq loop recorder INDICATIONS: Recurrent near syncope of uncertain etiology PROCEDURE DETAILS: An informed consent was obtained from patient. Patient was brought to the procedure suite and her le ft chest and shoulder were prepped and draped in the usual fashion. 20 mL of 2% lidocaine was infilt rated into the skin and subcutaneous tissues for local anesthesia. An incision was made in the left fourth intercostal space 1 inch from midsternal line and using the introducer and deployer provided w jordi, a Medtronic Reveal Linq loop recorder serial number [id number] was placed in the subcuta neous tissue. The incision was closed using steristrips. Hemostasis was secured. Patient tolerated the procedure well. There were no immediate complications. At the end of procedure, the device rosalia wed sensing amplitude of 0.7 mV. CONCLUSION: Successful implantation of Medtronic Reveal Linq loop recorder to rule out any significant arrhythmia s as a cause of recurrent episodes of near syncope. Signed by : Alexsandra Starkey, Electronically Approved : 03/27/2020 12:28:29
== END | disposition home or self-care (01) ==
LOC: LINQ 10:29
PROVIDERS: ATTEND Internal Medicine Cardiovascular Disease
DX: R55 Syncope and collapse (principal); I13.0 Hypertensive heart and chronic kidney disease with heart failure and stage 1 through stage 4 chronic kidney disease, or unspecified chronic kidney disease; I50.9 Heart failure, unspecified; E11.22 Type 2 diabetes mellitus with diabetic chronic kidney disease; E78.5 Hyperlipidemia, unspecified; F41.9 Anxiety disorder, unspecified; F32.9 Major depressive disorder, single episode, unspecified; Z79.899 Other long term (current) drug therapy; Z87.891 Personal history of nicotine dependence; Z88.8 Allergy status to other drugs, medicaments and biological substances; Z79.84 Long term (current) use of oral hypoglycemic drugs
CPT/HCPCS: 33285; C1764

== ENCOUNTER → 2021-01-14 | Outpatient (CLI) | payer OTHER ==
[2020-01-13 09:25] VITALS: BP 112/71
[~2021-01-14] MED LIST changes: +AMLO-186 PO; -AMLO5TAB10 PO; +MIRT-8 PO; -MIRT30TA3 PO; +REGADENOSON 0.4 MG/5 ML DISP.SYRIN. IV ONE
--- NOTE | 2021-01-14 17:54 | CARD ---
MR#: [id number] Date of Study: 01/14/2021 Ordering Physician: ALEXSANDRA RUBI, Referring Physician: ALEXSANDRA RUBI, Tech: Lucero Mckinney [facility] APPROVED REPORT EXAM: Two-dimensional and M-mode echocardiogram with Doppler and color Doppler. Other Information HR: 58bpm INDICATION Cardiac Disease: CAD Surgery/Intervention CABG: Date: 2012 Site: [facility] RISK FACTORS Hypertension Hyperlipidemia Diabetes Smoking 2D DIMENSIONS Left Atrium(2D)3.4 (1.6-4.0cm)IVSd1.3 (0.7-1.1cm) Aortic Root(2D)3.0 (2.0-3.7cm)LVDd5.8 (3.9-5.9cm) LVOT Diameter2.0 (1.8-2.4cm)PWd1.3 (0.7-1.1cm) LVDs4.5 (2.5-4.0cm)FS (%) 21.5 % SV70.7 ml Aortic Valve AoV Peak Sharif.118.7cm/sAoV VTI17.4cm AO Peak GR.5.6mmHgLVOT Peak Sharif.115.2cm/s LVOT VTI 18.54cmAO Mean GR.3mmHg ANA (VMAX)2.53jj1EUQ (VTI)3.40cm2 Mitral Valve MV E Pnkkazfn79.3cm/sMV DECEL DHPC473gi MV A Rymdaddh80.3cm/sMV TWB07dm E/A Ratio1.6MVA (PHT)4.12cm2 TDI E/Lateral E'15.5E/Medial E'13.8 Pulmonary Valve PV Peak Upllwvtz501.1cm/sPV Peak Grad.4mmHg Tricuspid Valve TR P. Iczgurde698kx/sRAP HIFMXYYH0dyEe TR Peak Gr.65vrSpJRSB73rdBi Pulmonary Vein S1 Gcqmxxtf61.7cm/sD2 Dyrbxvtv97.2cm/s LEFT VENTRICLE The Left Ventricle is mildly dilated. There is mild concentric left ventricular hypertrophy. The syst olic function is moderately severely impaired. The Ejection Fraction is 30-35%. There is global hypok inesis of the left ventricle. There is more severe hypokinesis through the mid to distal septal wall through the apex. Tissue Doppler imaging reveals moderate left ventricular diastolic dysfunction. RIGHT VENTRICLE The right ventricle is normal size. There is normal right ventricular wall thickness. The right ventr icular systolic function is normal. ATRIA The left atrium size is normal. The right atrium size is normal. The interatrial septum is intact wit h no evidence for an atrial septal defect or patent foramen ovale as noted on 2-D or Doppler imaging. AORTIC VALVE The aortic valve is normal in structure and function. Doppler and Color Flow revealed trace aortic re gurgitation. There is no significant aortic valvular stenosis. Calculated aortic valve maximum pressu re gradient of 8 mmHg and mean pressure gradient of 4 mmHg. MITRAL VALVE The mitral valve is normal in structure and function. There is no evidence of mitral valve prolapse. There is no mitral valve stenosis. Doppler and Color-flow revealed trace mitral regurgitation. TRICUSPID VALVE The tricuspid valve is normal in structure and function. Doppler and Color Flow revealed trace tricus pid regurgitation with an estimated PAP of 23 mmHg. There is no tricuspid valve stenosis. PULMONIC VALVE The pulmonary valve is normal in structure and function. Doppler and Color Flow revealed no pulmonic valvular regurgitation. There is no pulmonic valvular stenosis. GREAT VESSELS The aortic root is normal in size. The ascending aorta is normal in size. The IVC is normal in size a nd collapses >50% with inspiration. PERICARDIAL EFFUSION There is no evidence of significant pericardial effusion. Critical Notification Critical Value: No <Conclusion> The Left Ventricle is mildly dilated. The systolic function is moderately severely impaired. The Ejection Fraction is 30-35%. There is global hypokinesis of the left ventricle. There is more severe hypokinesis through the mid t o distal septal wall through the apex. There is mild concentric left ventricular hypertrophy. Doppler and Color Flow revealed trace aortic regurgitation. There is no significant aortic valvular stenosis. Doppler and Color-flow revealed trace mitral regurgitation. Doppler and Color Flow revealed trace tricuspid regurgitation with an estimated PAP of 23 mmHg. Signed by : Moose Niño MD Electronically Approved : 01/14/2021 17:53:30
--- NOTE | 2021-01-14 18:40 | RAD ---
MR#: [id number] Date of Study: 01/14/2021 Ordering Physician: ALEXSANDRA RUBI, Referring Physician: HAZEL HORNER Tech: LILIA Teixeira ARRT (R) (N) APPROVED REPORT Test Type: Pharmacological Stress Nurse/Tech: Erasmo Eli RN Test Indications: CAD Cardiac History: [place] PTCA 2012, CABG, HTN, Kidney disease, Smoker, DM Medications: See Electronic Medical Record Medical History: See Electronic Medical Record Resting ECG: SR, PVC, PAC, T depression Resting Heart Rate: 68 bpm Resting Blood Pressure: 126/57mmHg Pretest Chest Pain: None Nurse/Tech Notes Lungs CTA Consent: The procedure was explained to the patient in lay terms. Informed consent was witnessed. Brian eout was entered into [employer]. History and Stress Test performed by LILIA Teixeira ARRT (Evelin) (N) Pharm. Details Pharmacologic stress testing was performed using 0.4mg per 5ml of regadenoson given intravenously ove r 7-10 seconds. Stress Symptoms No chest pain or symptoms. POST EXERCISE Reason for Termination: Infusion complete Max HR: 129 bpm Max Blood Pressure: 126/56mmHg Blood Pressure response to exercise: Normal blood pressure response during stress. Heart Rate response to exercise: normal response Chest Pain: No. Arrhythmia: No. ST Change: No. INTERPRETATION Stress EKG Conclusion: The resting EKG shows a sinus rhythm with PACs and V paced beats. The stress EKG shows no significant change from baseline. No EKG evidence of stress-induced ischemia. Imaging Protocol IMAGE PROTOCOL: Rest Tc-99m/stress Tc-99m 1 day Rest: Stress: Viability: Radiopharm.Tc99m TbyrdzfjcTz85l Sestamibi Dose10.2mCi 33mCi Img Date 01/14/2021 01/14/2021 Inj-Img Bhmj30ufo. 45min. Rest Admin Site:IV - Right AntecubitalAdministrator:LILIA Teixeira ARRT (R)(N) Stress Admin Site: IV - Right AntecubitalAdministrator: Soo Roman, NMTCB, ARRT (R)(N) STRESS DATA End Diast. Vol.207.0mlLVEDV index BQA723.0ml End Syst. Vol.147.0mlLVESV index BSA76.0ml Myocardial Tpze912.0gEject. Ryucozse12.0% Stress Scores Regional WT3.00Summed WT44.00 Regional WM2.00Summed WM26.00 LV Perfusion The stress images show an apical and distal inferior defect. The rest images show an apical and distal inferior defect. 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 There is minimal yael-infarction reversib ility present. Wall Motion Left ventricular ejection fraction is decreased at 29% with mild global hypokinesis and more signific ant apical hypokinesis. LV Perf. Quant 17 Seg. SSS11.00 17 Seg. SRS15.00 17 Seg. SDS0.00 Stress Defect Extent (% LAD)47.50Rest Defect Extent (% LAD)45.60Rev. Defect Extent (% LAD)10.00 Stress Defect Extent (% LCX) 0.00Rest Defect Extent (% LCX)0.00Rev. Defect Extent (% LCX)0.00 Stress Defect Extent (% RCA)17.80Rest Defect Extent (% RCA)36.70Rev. Defect Extent (% RCA)0.00 Stress Defect Extent (% CAROLYN)27.20Rest Defect Extent (% CAROLYN)31.70Rev. Defect Extent (% CAROLYN)6.50 Conclusion 1. Abnormal baseline EKG but no EKG evidence of stress-induced ischemia. 2. 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 3. Left ventricular systolic function is significantly decreased with an ejection fraction of 29% wit h mild global hypokinesis and more significant hypokinesis in the apex. 4. Moderate risk Lexiscan nuclear stress test consistent with a prior infarct and a decreased ejectio n fraction at 29%. Signed by : Moose Niño MD Electronically Approved : 01/14/2021 18:39:58
== END ==
LOC: NM 09:14
PROVIDERS: ATTEND Internal Medicine Cardiovascular Disease
DX: I11.9 Hypertensive heart disease without heart failure (principal); I21.29 ST elevation (STEMI) myocardial infarction involving other sites; I25.10 Atherosclerotic heart disease of native coronary artery without angina pectoris
CPT/HCPCS: 78452; 93017; 93306; A9500; J2785

== ENCOUNTER → 2021-02-15 | Outpatient (CLI) | payer OTHER ==
[2020-01-13 09:25] VITALS: BP 112/71
[~2021-02-15] MED LIST changes: -REGADENOSON 0.4 MG/5 ML DISP.SYRIN. IV ONE
--- NOTE | 2021-02-15 16:25 | RAD ---
MR#: [id number] Date of Study: 02/15/2021 Ordering Physician: ALEXSANDRA RUBI, Referring Physician: ALEXSANDRA RUBI, Tech: Mulugeta Ding MBA, RDMS, RVT, RDCS, RTR APPROVED REPORT Patient Location: OUT-PATIENT Indications Rest Pain:Bilaterally VELOCITY AND DOPPLER WAVEFORM ANALYSIS RIGHT cm/secWaveformSeverity LEFT cm/secWaveform Severity dCFA 161.0BiphasicdCFA 120.0Triphasic Prof Fem Art. 99.0BiphasicProf Fem Art. 77.0Biphasic Fem Art Prox. 83.0BiphasicFem Art Prox. 87.0Triphasic Fem Art Mid. 136.0TriphasicFem Art Mid. 109.0Triphasic Fem Art Dist. 155.0TriphasicFem Art Dist. 128.0Triphasic Pop Art(Fossa) 75.0TriphasicPop Art(AK) 89.0Triphasic BRIDAL ST[employer]LIST SALES CONSULTANT Prox. 96.0TriphasicPTA Prox. 42.0Triphasic BRIDAL STYLIST SALES CONSULTANT Dist. 41.0TriphasicPTA Dist. 54.0Triphasic Per Art Mid. 46.0TriphasicPer Art Mid. 89.0Triphasic REBEKA Prox. 67.0TriphasicATA Prox. 97.0Triphasic DPA 69TriphasicDPA 80Triphasic Findings Grayscale images of the bilateral lower extremity arterial vessels demonstrates moderate diffuse athe rosclerotic plaque. There are mostly triphasic and biphasic waveforms with three-vessel runoff below the knee. Critical Notification Critical Value: No <Conclusion> 1. No significant lower extremity arterial occlusive disease bilaterally. Signed by : Elan Brown, Electronically Approved : 02/15/2021 16:24:53
== END ==
LOC: US 09:17
PROVIDERS: ATTEND Internal Medicine Cardiovascular Disease
DX: M79.605 Pain in left leg (principal); M79.604 Pain in right leg
CPT/HCPCS: 93925

== ENCOUNTER 2021-05-22 22:15 | Emergency (ER) | payer OTHER ==
[~2021-05-22] VITALS: Ht 182.9 cm; Wt 72.7 kg
[2021-05-22 22:40] VITALS: BP 126/83
--- NOTE | 2021-05-22 23:02 | PHYS DOC ---
Past Medical History Past Medical History: Depression, Diabetes-Type II, GERD, High Cholesterol, Hypertension Additional Past Medical Histor: schizoeffective, neuropathy, stg 3 kidney disease, 4 stents, throat cx (ROSANA GODDARD APRN) Past Surgical History: Coronary Bypass Surgery, Other Additional Past Surgical Histo: cardiac cath with stent, R ankle and R hand (ROSANA GODDARD APRN) Smoking Status: Former Smoker Alcohol Use: None Drug Use: None (ROSANA GODDARD APRN) General Adult EDM: Chief Complaint: SKIN PROBLEM HPI: HPI: Patient is a 61-year-old male that presents today with bumps on his head, back, and buttock area. Patient states that he has had these bumps on him for over 6 months, he has seen his primary care physician at the [facility] a couple times, he states that blood was drawn and since they had no diagnosis for the bumps they referred him to dermatology. Patient states that natural gas trader at the [facility] is unable to get him in until October 2021. Patient states that the bumps hurt, when asked if he could take Tylenol and/or ibuprofen he says no due to his kidney and liver diseases. Patient denies chest pain, fever, shortness of air, or swelling or warmth to these areas . (ROSANA GODDARD APRN) Review of Systems: Review of Systems: Constitutional: Denies fever or chills. [] Eyes: Denies change in visual acuity. [] HENT: Denies nasal congestion or sore throat. [] Respiratory: Denies cough or shortness of breath. [] Cardiovascular: Denies chest pain or edema. [] GI: Denies abdominal pain, nausea, vomiting, bloody stools or diarrhea. [] : Denies dysuria. [] Musculoskeletal: Denies back pain or joint pain. [] Integument: Bumps on scalp, back, and buttock area Neurologic: Denies headache, focal weakness or sensory changes. [] Endocrine: Denies polyuria or polydipsia. [] Lymphatic: Denies swollen glands. [] Psychiatric: Denies depression or anxiety. [] (ROSANA GODDARD APRN) Heart Score: C/O Chest Pain: N/A Risk Factors: Risk Factors: DM, Current or recent (<one month) smoker, HTN, HLP, family history of CAD, obesity. Risk Scores: Score 0 - 3: 2.5% MACE over next 6 weeks - Discharge Home Score 4 - 6: 20.3% MACE over next 6 weeks - Admit for Clinical Observation Score 7 - 10: 72.7% MACE over next 6 weeks - Early Invasive Strategies (ROSANA GODDARD APRN) Allergies: Allergies: Allergies Coded Allergies Type Severity Reaction Last Updated Verified lisinopril Allergy Intermediate swells 01/13/20 Yes (ROSANA GODDARD APRN) Physical Exam: PE: Constitutional: Well developed, well nourished, no acute distress, non-toxic appearance. [] HENT: Normocephalic, atraumatic, bilateral external ears normal, oropharynx moist, no oral exudates, nose normal. [] Eyes: PERRLA, EOMI, conjunctiva normal, no discharge. [] Neck: Normal range of motion, no tenderness, supple, no stridor. [] Cardiovascular:Heart rate regular rhythm, no murmur [] Lungs & Thorax: Bilateral breath sounds clear to auscultation [] Abdomen: Bowel sounds normal, soft, no tenderness, no masses, no pulsatile masses. [] Skin: Raised area 2 cm x 2 cm noted in this occipital scalp area on the right side, no redness or warmth or drainage noted from this area, patient also had another area on the lower back area near the sacroiliac joint approximately 1 cm x 1 cm, no redness warmth or drainage noted from this, patient did not wish to let me evaluate the wound on his buttock area at this time Back: No tenderness, no CVA tenderness. [] Extremities: No tenderness, no cyanosis, no clubbing, ROM intact, no edema. [] Neurologic: Alert and oriented X 3, normal motor function, normal sensory function, no focal deficits noted. [] Psychologic: Affect normal, judgement normal, mood normal. [] (ROSANA GODDARD APRN) Current Patient Data: Vital Signs: Vital Signs Date Time Temp Pulse Resp B/P (MAP) Pulse Ox O2 Delivery O2 Flow Rate FiO2 05/22/21 22:40 98.4 84 18 126/83 (97) 98 Room Air 98.4 (ROSANA GODDARD APRN) EKG: EKG: [] (ROSANA GODDARD APRN) Radiology/Procedures: Radiology/Procedures: [] (ROSANA GODDARD APRN) Course & Med Decision Making: Course & Med Decision Making Pertinent Labs and Imaging studies reviewed. (See chart for details) When asked what I could do for the patient at this time he asked for the pain to go away patient was offered Motrin and/or Tylenol, he states he cannot take those due to his renal and liver diseases. Patient was offered a list of other natural gas trader in the area that he could call and contact to see if he can get in sooner with and he is agreeable to this. Patient appears nontoxic and no acute distress we will have him follow-up with his primary care physician next week by phone. (ROSANA GODDARD APRN) Course & Med Decision Making Patients Care and treatment plan provided by ER Nurse Practitioner. I was available for consult. Patient's chart reviewed. (RUDY GARCIA DO) Dragon Disclaimer: Dragon Disclaimer: This electronic medical record was generated, in whole or in part, using a voice recognition dictation system. (ROSANA GODDARD APRN) Departure Departure Impression: Primary Impression: Bumps on skin Disposition: 01 HOME / SELF CARE / HOMELESS Condition: STABLE Referrals: YESICA DAY MD (PCP) Additional Instructions: Please see list of natural gas trader that was printed out for you for further recommendations for natural gas trader for evaluations of your bump Follow-up with your primary care physician for pain management of your bumps if they are painful ROSANA GODDARD APRN May 22, 2021 23:02 RUDY GARCIA DO May 23, 2021 19:37
== END 2021-05-22 23:05 | disposition home or self-care (01) ==
LOC: ER 22:15
DX: L98.8 Other specified disorders of the skin and subcutaneous tissue (principal); K21.9 Gastro-esophageal reflux disease without esophagitis; E78.00 Pure hypercholesterolemia, unspecified; I12.9 Hypertensive chronic kidney disease with stage 1 through stage 4 chronic kidney disease, or unspecified chronic kidney disease; E11.22 Type 2 diabetes mellitus with diabetic chronic kidney disease; N18.9 Chronic kidney disease, unspecified; E11.40 Type 2 diabetes mellitus with diabetic neuropathy, unspecified; Z95.1 Presence of aortocoronary bypass graft; Z88.8 Allergy status to other drugs, medicaments and biological substances
CPT/HCPCS: 99282